=== PATIENT | female | born 1965 | race Caucasian/White ===

== ENCOUNTER 2016-08-08 20:44 | Emergency (ER) | payer MEDICARE, MEDICAID ==
--- NOTE | 2016-08-08 20:58 | ER Document Report ---
ED Medical Screen (RME) - General Chief Complaint: Allergic Reaction Stated Complaint: POSSIBLE ALLERGIC REACTION Time seen by provider: 20:56 Mode of Arrival: Ambulatory Information source: Patient Notes: 51 yo female presents to ed for gland in neck swelling, eye swelling and skin itching TRAVEL OUTSIDE OF THE [place] IN LAST 30 DAYS: No - HPI Onset: This evening Onset/Duration: Gradual Quality of pain: Achy Pain Level: 3 Associated Symptoms: Other - itching swelling to gland and feels like she is having difficulty breathing Exacerbated by: Denies Relieved by: Denies Similar symptoms previously: Yes Recently seen / treated by doctor: Yes - Related Data Smoking: Cigarettes, Less than 1 pack/day - 1/2 ppd Frequency of alcohol use: Rare Drug Abuse: None Allergies/Adverse Reactions: epinephrine [Epinephrine] Allergy (Unknown, Verified 08/08/16 20:55) Anaphylaxis Penicillins Allergy (Unknown, Verified 08/08/16 20:55) Hives adhesive tape [Adhesive Tape] Allergy (Verified 08/08/16 20:55) RASH, BLISTERS diphenhydramine HCl [From Benadryl] Allergy (Verified 08/08/16 20:55) iodine [Iodine] Allergy (Verified 08/08/16 20:55) Anaphylaxis latex [Latex] Allergy (Verified 08/08/16 20:55) RASH, BLISTERS metformin Allergy (Verified 08/08/16 20:55) Hives Class 2 Anesthesias Allergy (Severe, Uncoded 08/08/16 20:55) Anaphylaxis Past Medical History - Past Medical History Cardiac Medical History: Denies: Hx Heart Attack, Hx Hypertension Pulmonary Medical History: Denies: Hx Asthma, Hx Bronchitis, Hx COPD, Hx Pneumonia Neurological Medical History: Reports: Hx Migraine. Denies: Hx Seizures Endocrine Medical History: Reports: Hx Diabetes Mellitus Type 2, Hx Graves' Disease - questionable has 5 tumors Musculoskeltal Medical History: Denies Hx Arthritis, Reports Hx Musculoskeletal Trauma Skin Medical History: Reports Hx Cellulitis Psychiatric Medical History: Reports: Hx Anxiety, Hx Depression Traumatic Medical History: Reports: Hx Fractures - left elbow Past Surgical History: Reports: Hx Appendectomy, Hx Cholecystectomy, Hx Gynecologic Surgery - both tubes and one ovary, Hx Hysterectomy, Hx Tonsillectomy, Hx Tubal Ligation - Immunizations Immunizations up to date: Yes Hx Diphtheria, Pertussis, Tetanus Vaccination: Yes
--- NOTE | 2016-08-08 22:16 | ER Document Report ---
ED General - General Chief Complaint: Allergic Reaction Stated Complaint: POSSIBLE ALLERGIC REACTION Mode of Arrival: Ambulatory Information source: Patient Notes: 51-year-old female who is presented here multiple times for allergic reactions in the past presents again stating that she had allergic reaction secondary to eating a tortilla chip. pt notes swelling of her neck and diffiuclty breathing yet is talking in full sentences in no distress with no obvious swelling TRAVEL OUTSIDE OF THE [place] IN LAST 30 DAYS: No - HPI Onset: Just prior to arrival Onset/Duration: Sudden Quality of pain: No pain Severity: Mild Pain Level: Denies Associated symptoms: Other Exacerbated by: Denies Relieved by: Denies Similar symptoms previously: Yes Recently seen / treated by doctor: Yes - Related Data Allergies/Adverse Reactions: epinephrine [Epinephrine] Allergy (Unknown, Verified 08/08/16 20:55) Anaphylaxis Penicillins Allergy (Unknown, Verified 08/08/16 20:55) Hives adhesive tape [Adhesive Tape] Allergy (Verified 08/08/16 20:55) RASH, BLISTERS diphenhydramine HCl [From Benadryl] Allergy (Verified 08/08/16 20:55) iodine [Iodine] Allergy (Verified 08/08/16 20:55) Anaphylaxis latex [Latex] Allergy (Verified 08/08/16 20:55) RASH, BLISTERS metformin Allergy (Verified 08/08/16 20:55) Hives Class 2 Anesthesias Allergy (Severe, Uncoded 08/08/16 20:55) Anaphylaxis Past Medical History - General Information source: Patient - Social History Smoking Status: Current Every Day Smoker Cigarette use (# per day): No Chew tobacco use (# tins/day): No Smoking Education Provided: No Frequency of alcohol use: Rare Drug Abuse: None Family History: Reviewed & Not Pertinent Patient has suicidal ideation: No Patient has homicidal ideation: No - Past Medical History Cardiac Medical History: Denies: Hx Heart Attack, Hx Hypertension Pulmonary Medical History: Denies: Hx Asthma, Hx Bronchitis, Hx COPD, Hx Pneumonia Neurological Medical History: Reports: Hx Migraine. Denies: Hx Seizures Endocrine Medical History: Reports: Hx Diabetes Mellitus Type 2, Hx Graves' Disease - questionable has 5 tumors Musculoskeltal Medical History: Denies Hx Arthritis, Reports Hx Musculoskeletal Trauma Skin Medical History: Reports Hx Cellulitis Psychiatric Medical History: Reports: Hx Anxiety, Hx Depression Traumatic Medical History: Reports: Hx Fractures - left elbow Past Surgical History: Reports: Hx Appendectomy, Hx Cholecystectomy, Hx Gynecologic Surgery - both tubes and one ovary, Hx Hysterectomy, Hx Tonsillectomy, Hx Tubal Ligation - Immunizations Immunizations up to date: Yes Hx Diphtheria, Pertussis, Tetanus Vaccination: Yes Review of Systems - Review of Systems Notes: REVIEW OF SYSTEMS: CONSTITUTIONAL : Denies fever, chills, or sweats. Denies recent illness. EENT: Admits to difficulty breathing CARDIOVASCULAR: Denies chest pain. Denies palpitations or racing or irregular heart beat. Denies ankle edema. RESPIRATORY: Denies cough, cold, or chest congestion. Denies shortness of breath, difficulty breathing, or wheezing. GASTROINTESTINAL: Denies abdominal pain or distention. Denies nausea, vomiting , or diarrhea. Denies blood in vomitus, stools, or per rectum. Denies black, tarry stools. Denies constipation. GENITOURINARY: Denies difficulty urinating, painful urination, burning, frequency, blood in urine, or discharge. FEMALE GENITOURINARY: Denies vaginal bleeding, heavy or abnormal periods, irregular periods. Denies vaginal discharge or odor. MUSCULOSKELETAL: Denies back or neck pain or stiffness. Denies joint pain or swelling. SKIN: Denies rash, lesions or sores. HEMATOLOGIC : Denies easy bruising or bleeding. LYMPHATIC: Denies swollen, enlarged glands. NEUROLOGICAL: Denies confusion or altered mental status. Denies passing out or loss of consciousness. Denies dizziness or lightheadedness. Denies headache. Denies weakness or paralysis or loss of use of either side. Denies problems with gait or speech. Denies sensory loss, numbness, or tingling. Denies seizures. PSYCHIATRIC: Denies anxiety or stress. Denies depression, suicidal ideation, or homicidal ideation. ALL OTHER SYSTEMS REVIEWED AND NEGATIVE. Dictation was performed using [employer] voice recognition software PHYSICAL EXAMINATION: GENERAL: Well-appearing, well-nourished and in no acute distress. HEAD: Atraumatic, normocephalic. EYES: Pupils equal round and reactive to light, extraocular movements intact, conjunctiva are normal. ENT: Nares patent, oropharynx clear without exudates. Moist mucous membranes. NECK: Normal range of motion, supple without lymphadenopathy LUNGS: Breath sounds clear to auscultation bilaterally and equal. No wheezes rales or rhonchi. HEART: Regular rate and rhythm without murmurs ABDOMEN: Soft, nontender, nondistended abdomen. No guarding, no rebound. No masses appreciated. Female : deferred Musculoskeletal: Normal range of motion, no pitting or edema. No cyanosis. NEUROLOGICAL: Cranial nerves grossly intact. Normal speech, normal gait. Normal sensory, motor exams PSYCH: Normal mood, normal affect. SKIN: Warm, Dry, normal turgor, no rashes or lesions noted. Physical Exam - Vital signs Vitals: Temp Pulse Resp BP Pulse Ox 97.8 F 110 H 16 142/79 H 99 08/08/16 20:56 08/08/16 20:56 08/08/16 20:56 08/08/16 20:56 08/08/16 20:56 Course - Re-evaluation Re-evalutation: 08/08/16 22:11 Physical examination notes actually no swelling no respiratory distress no signs of any allergic reaction. I have very low suspicion for any life- threatening issues. Patient will be started on steroids and Atarax and is otherwise stable for discharge After performing a Medical Screening Examination, I estimate there is LOW risk for AIRWAY COMPROMISE, ANAPHYLAXIS, CELLULITIS, EPIGLOTTIS, or NECROTIZING FASCIITIS, thus I consider the discharge disposition reasonable. Also, there is no evidence or peritonitis, sepsis, or toxicity. The patient and I have discussed the diagnosis and risks, and we agree with discharging home with close follow-up with the understanding that symptoms and presentations can change. We also discussed returning to the Emergency Department immediately if new or worsening symptoms occur. We have discussed the symptoms which are most concerning (e.g., difficulty breathing or swallowing, fever, changing or worsening pain) that necessitate immediate return. - Vital Signs Vital signs: Temp Pulse Resp BP Pulse Ox 97.8 F 110 H 16 142/79 H 99 08/08/16 20:56 08/08/16 20:56 08/08/16 20:56 08/08/16 20:56 08/08/16 20:56 Discharge - Discharge Clinical Impression: Allergic reaction Qualifiers: Encounter type: initial encounter Qualified Code(s): T78.40XA - Allergy, unspecified, initial encounter Condition: Stable Disposition: HOME, SELF-CARE Instructions: Acute Allergic Reaction ([facility]) Additional Instructions: Follow up with your physician tomorrow for further care or return to the ED IMMEDIATELY if symptoms worsen or new concerns occur Prescriptions: Prednisone 20 mg PO DAILY #10 tablet
[2016-08-08 23:21] VITALS: BP 122/74
== END 2016-08-08 22:40 | disposition home or self-care (01) ==
LOC: ER 20:44
DX: T78.1XXA Other adverse food reactions, not elsewhere classified, initial encounter (principal); X58.XXXA Exposure to other specified factors, initial encounter; F17.200 Nicotine dependence, unspecified, uncomplicated; E11.9 Type 2 diabetes mellitus without complications; Z88.0 Allergy status to penicillin; Z91.048 Other nonmedicinal substance allergy status; Z91.040 Latex allergy status; Z87.892 Personal history of anaphylaxis; Z88.8 Allergy status to other drugs, medicaments and biological substances; Z88.4 Allergy status to anesthetic agent
CPT/HCPCS: 99283

== ENCOUNTER 2016-08-11 08:58 | Emergency (ER) | payer MEDICARE, MEDICAID ==
[2016-08-11] MEDS ORDERED: NAPROXEN 250 MG TABLET PO ONE (10:09)
--- NOTE | 2016-08-11 10:11 | ER Document Report ---
ED Respiratory Problem - General Chief Complaint: Rib Pain Stated Complaint: LEFT SIDE PAIN Mode of Arrival: Ambulatory Information source: Patient Notes: Patient complains of nonproductive cough for the past 2 weeks. Patient states she was coughing this morning and felt a sudden pop in the left lateral rib area. Patient complains of increased pain with cough, deep breath, and movements. Patient denies any shortness of breath, nausea, vomiting or diarrhea. Patient denies any fever. TRAVEL OUTSIDE OF THE [place] IN LAST 30 DAYS: No - HPI Patient complains to provider of: Cough, Hurts to breath. No: Short of breath Onset: This morning Duration: Continuous Pain Level: 5 Context: denies: Hx asthma Chest pain/discomfort: Left Cough: Nonproductive Associated symptoms: Chest pain/discomfort, Cough. denies: Fever, Wheezing Similar symptoms previously: No Recently seen / treated by doctor: No - Related Data Allergies/Adverse Reactions: epinephrine [Epinephrine] Allergy (Unknown, Verified 08/11/16 09:04) Anaphylaxis Penicillins Allergy (Unknown, Verified 08/11/16 09:04) Hives adhesive tape [Adhesive Tape] Allergy (Verified 08/11/16 09:04) RASH, BLISTERS diphenhydramine HCl [From Benadryl] Allergy (Verified 08/11/16 09:04) iodine [Iodine] Allergy (Verified 08/11/16 09:04) Anaphylaxis latex [Latex] Allergy (Verified 08/11/16 09:04) RASH, BLISTERS metformin Allergy (Verified 08/11/16 09:04) Hives Class 2 Anesthesias Allergy (Severe, Uncoded 08/11/16 09:04) Anaphylaxis Past Medical History - General Information source: Patient - Social History Smoking Status: Current Every Day Smoker Chew tobacco use (# tins/day): No Frequency of alcohol use: Social Drug Abuse: None Family History: Reviewed & Not Pertinent Patient has suicidal ideation: No Patient has homicidal ideation: No - Past Medical History Cardiac Medical History: Denies: Hx Heart Attack, Hx Hypertension Pulmonary Medical History: Denies: Hx Asthma, Hx Bronchitis, Hx COPD, Hx Pneumonia Neurological Medical History: Reports: Hx Migraine. Denies: Hx Seizures Endocrine Medical History: Reports: Hx Diabetes Mellitus Type 2, Hx Graves' Disease - questionable has 5 tumors Musculoskeltal Medical History: Denies Hx Arthritis, Reports Hx Musculoskeletal Trauma Skin Medical History: Reports Hx Cellulitis Psychiatric Medical History: Reports: Hx Anxiety, Hx Depression Traumatic Medical History: Reports: Hx Fractures - left elbow Past Surgical History: Reports: Hx Appendectomy, Hx Cholecystectomy, Hx Gynecologic Surgery - both tubes and one ovary, Hx Hysterectomy, Hx Tonsillectomy, Hx Tubal Ligation - Immunizations Immunizations up to date: Yes Hx Diphtheria, Pertussis, Tetanus Vaccination: Yes Review of Systems - Review of Systems Constitutional: No symptoms reported. denies: Fever, Recent illness EENT: No symptoms reported Cardiovascular: Chest pain - Left lateral rib pain. denies: Dizziness Respiratory: Cough, Hurts to breathe. denies: Short of breath Gastrointestinal: No symptoms reported. denies: Abdominal pain, Nausea, Vomiting Genitourinary: No symptoms reported. denies: Dysuria, Flank pain Female Genitourinary: No symptoms reported Musculoskeletal: No symptoms reported Skin: No symptoms reported Hematologic/Lymphatic: No symptoms reported Neurological/Psychological: No symptoms reported. denies: Headaches Physical Exam - Vital signs Vitals: Temp Pulse Resp BP Pulse Ox 98.1 F 89 18 145/81 H 97 08/11/16 09:06 08/11/16 09:06 08/11/16 09:06 08/11/16 09:06 08/11/16 09:06 - General General appearance: Appears well, Alert In distress: Mild - HEENT Head: Normocephalic, Atraumatic Eyes: Normal Sinus: Normal Nasal: Normal Mouth/Lips: Normal Mucous membranes: Normal Neck: Normal, Supple. No: Lymphadenopathy - Respiratory Respiratory status: No respiratory distress Chest status: Pain on movement, Pain with cough, Pain with deep breathing Breath sounds: Nonproductive cough Chest palpation: Tender - left lateral side pain - Cardiovascular Rhythm: Regular Heart sounds: S1 appreciated, S2 appreciated - Abdominal Inspection: Obese Distension: No distension Bowel sounds: Normal Tenderness: Nontender - Back Back: Normal, Nontender. No: CVA tenderness - Extremities General upper extremity: Normal inspection, Normal strength General lower extremity: Normal inspection, Normal strength - Neurological Neuro grossly intact: Yes Cognition: Normal Orientation: AAOx4 [place] Coma Scale Eye Opening: Spontaneous [place] Coma Scale Verbal: Oriented [place] Coma Scale Motor: Obeys Commands [place] Coma Scale Total: 15 - Psychological Associated symptoms: Normal affect, Normal mood - Skin Skin Temperature: Warm Skin Moisture: Dry Skin Color: Normal Course - Re-evaluation Re-evalutation: 08/11/16 11:34 Respirations even, unlabored. Patient claims any narcotic pain medication at this time. Discussed worsening signs or symptoms that patient should return immediately for. Patient verbalized understanding and agrees with plan of care. - Vital Signs Vital signs: Temp Pulse Resp BP Pulse Ox 98.1 F 89 18 145/81 H 97 08/11/16 09:06 08/11/16 09:06 08/11/16 09:06 08/11/16 09:06 08/11/16 09:06 - Laboratory Result Diagrams: 08/11/16 10:20 08/11/16 10:20 Laboratory results interpreted by me: 08/11/16 08/11/16 08/11/16 09:55 10:20 10:20 Hgb 11.9 L Hct 35.9 L MCH 26.9 L RDW 18.0 H Chloride 108 H Albumin 3.3 L Urine Blood MODERATE H Labs- Entire Visit 08/11/16 08/11/16 08/11/16 09:55 10:20 10:20 WBC 8.3 RBC 4.43 Hgb 11.9 L Hct 35.9 L MCV 81 MCH 26.9 L MCHC 33.2 RDW 18.0 H Plt Count 279 Seg Neutrophils % 58.6 Lymphocytes % 23.4 Monocytes % 12.9 Eosinophils % 4.4 Basophils % 0.7 Absolute Neutrophils 4.9 Absolute Lymphocytes 1.9 Absolute Monocytes 1.1 Absolute Eosinophils 0.4 Absolute Basophils 0.1 Sodium 140.5 Potassium 4.3 Chloride 108 H Carbon Dioxide 25 Anion Gap 8 BUN 11 Creatinine 0.63 Est GFR ( Amer) > 60 Est GFR (Non-Af Amer) > 60 Glucose 87 Calcium 9.0 Total Bilirubin 0.3 Direct Bilirubin 0.0 AST 21 ALT 25 Alkaline Phosphatase 88 Total Protein 6.3 Albumin 3.3 L Urine Color STRAW Urine Appearance CLEAR Urine pH 6.0 Ur Specific [place] 1.005 Urine Protein NEGATIVE Urine Glucose (UA) NEGATIVE Urine Ketones NEGATIVE Urine Blood MODERATE H Urine Nitrite NEGATIVE Urine Bilirubin NEGATIVE Urine Urobilinogen NEGATIVE Ur Leukocyte Esterase NEGATIVE Urine WBC (Auto) 1 Urine RBC (Auto) 1 Squamous Epi Cells Auto 2 Urine Mucus (Auto) RARE Urine Ascorbic Acid NEGATIVE 08/11/16 11:34 - Diagnostic Test Radiology reviewed: Reports reviewed Discharge - Discharge Clinical Impression: Cough, Chest wall pain Upper respiratory infection Qualifiers: URI type: unspecified URI Qualified Code(s): J06.9 - Acute upper respiratory infection, unspecified Condition: Stable Disposition: HOME, SELF-CARE Instructions: Chest Wall Pain ([facility]), Anti-Inflammatory Medication ([facility]), Upper Respiratory Illness ([facility]), Muscle Relaxers ([facility]), Muscle Strain ([facility]) Additional Instructions: Return immediately for any new or worsening symptoms Followup with your primary care provider, call tomorrow to make a followup appointment Prescriptions: Benzonatate [Tessalon Perle 100 mg Capsule] 100 mg PO Q8HP PRN #20 cap PRN Reason: Cyclobenzaprine HCl [Flexeril 10 Mg Tablet] 10 mg PO TID #15 tablet Referrals: DIOMEDES RICO MD [Primary Care Provider] - Follow up tomorrow
[2016-08-11 10:38] LABS: APPEARANCE,URINE CLEAR; BILIRUBIN,URINE NEGATIVE (NEGATIVE); GLUCOSE, URINE NEGATIVE (NEGATIVE); KETONES,URINE NEGATIVE (NEGATIVE); LEUKOCYTE ESTERASE,URINE NEGATIVE (NEGATIVE); NITRITE,URINE NEGATIVE (NEGATIVE); PROTEIN,URINE NEGATIVE (NEGATIVE); URINE SPECIFIC GRAVITY 1.005; UROBILINOGEN,URINE NEGATIVE mg/dL (<2.0)
[2016-08-11 10:47] LABS: ABSOLUTE BASOPHILS # (AUTO) 0.1 10^3/uL (0.0-0.2); ABSOLUTE EOSINOPHILS # (AUTO) 0.4 10^3/uL (0.0-0.6); ABSOLUTE LYMPHOCYTES (AUTO) 1.9 10^3/uL (0.5-4.7); ABSOLUTE MONOCYTES (AUTO) 1.1 10^3/uL (0.1-1.4); ABSOLUTE NEUT (AUTO) 4.9 10^3/uL (1.7-8.2); BASOPHILS % (AUTO) 0.7 % (0-2); EOSINOPHILS % (AUTO) 4.4 % (0-6); HEMATOCRIT 35.9 % (36.0-47.0); HEMOGLOBIN 11.9 g/dL (12.0-15.5); HGB HCT DIFFERENCE -0.2; LYMPHOCYTES % (AUTO) 23.4 % (13-45); MEAN CORPUSCULAR HEMOGLOBIN 26.9 pg (27.0-33.4); MEAN CORPUSCULAR HGB CONC 33.2 g/dL (32.0-36.0); MEAN CORPUSCULAR VOLUME 81 fl (80-97); MONOCYTES % (AUTO) 12.9 % (3-13); RED BLOOD COUNT 4.43 10^6/uL (3.72-5.28); SEGMENTED NEUTROPHILS % (AUTO) 58.6 % (42-78); WHITE BLOOD COUNT 8.3 10^3/uL (4.0-10.5)
[2016-08-11 11:10] LABS: ALANINE AMINOTRANSFERASE 25 U/L (9-52); ALBUMIN 3.3 g/dL (3.5-5.0); ALKALINE PHOSPHATASE 88 U/L (38-126); ANION GAP 8 (5-19); ASPARTATE AMINO TRANSFERASE 21 U/L (14-36); BILIRUBIN,TOTAL 0.3 mg/dL (0.2-1.3); BLOOD UREA NITROGEN 11 mg/dL (7-20); CARBON DIOXIDE 25 mmol/L (22-30); CHLORIDE 108 mmol/L (98-107); CREATININE RESULT 0.63 mg/dL (0.52-1.25); GLUCOSE 87 mg/dL (75-110); POTASSIUM 4.3 mmol/L (3.6-5.0); SODIUM 140.5 mmol/L (137-145); TOTAL PROTEIN 6.3 g/dL (6.3-8.2)
[2016-08-11 13:07] VITALS: BP 127/67
== END 2016-08-11 12:02 | disposition home or self-care (01) ==
LOC: ER 08:58
DX: J06.9 Acute upper respiratory infection, unspecified (principal); R07.89 Other chest pain; R05 Cough; R07.81 Pleurodynia; R06.02 Shortness of breath; F17.210 Nicotine dependence, cigarettes, uncomplicated
CPT/HCPCS: 99283; 36415; 87040; 85025; 80053; 81001; 71101; A9270

== ENCOUNTER 2016-11-10 22:58 | Emergency (ER) | payer MEDICARE, MEDICAID ==
[2016-11-10] MEDS ORDERED: IPRATROPIUM/ALBUTEROL 0.5-2.5 MG/3 ML AMPUL NEB ONE (23:15)
[2016-11-10] MEDS: ALBUTEROL SULFATE 0.083% NEB 2.5 MG/3 ML AMPUL NEB SCH ×2 (23:27→23:55)
[2016-11-11] MEDS ORDERED: PREDNISONE 20 MG TABLET PO ONE (01:47)
--- NOTE | 2016-11-11 01:48 | ER Document Report ---
ED Respiratory Problem - General Chief Complaint: Breathing Difficulty Stated Complaint: DIFFICULTY BREATHING Time seen by provider: 01:48 Mode of Arrival: Ambulatory Information source: Patient TRAVEL OUTSIDE OF THE [place] IN LAST 30 DAYS: No - HPI Patient complains to provider of: Cough, Short of breath Onset: Other - 4 days Duration: Worse/persistent Severity: Mild Context: Smoker Short of Breath: Mild Chest pain/discomfort: Tightness Cough: Nonproductive At home treatment: Bronchodilators Associated symptoms: Congestion, Cough, Fever, Short of breath Similar symptoms previously: Yes Recently seen / treated by doctor: No Notes: Patient is a 51-year-old female who is a smoker but reports that she has never been diagnosed with COPD, who presents to the emergency room complaining of cough, shortness of breath, wheezing that's been going on for the past few days , infected 4 days ago she had a fever 102 which resolved after 1 dose of ibuprofen and has not returned, she denies any chest pain, reports her cough is nonproductive, has been using her pro-air inhaler at home with minimal intermittent relief - Related Data Allergies/Adverse Reactions: epinephrine [Epinephrine] Allergy (Unknown, Verified 11/11/16 02:34) Anaphylaxis Penicillins Allergy (Unknown, Verified 11/11/16 02:34) Hives adhesive tape [Adhesive Tape] Allergy (Verified 11/11/16 02:34) RASH, BLISTERS diphenhydramine HCl [From Benadryl] Allergy (Verified 11/11/16 02:34) iodine [Iodine] Allergy (Verified 11/11/16 02:34) Anaphylaxis latex [Latex] Allergy (Verified 11/11/16 02:34) RASH, BLISTERS metformin Allergy (Verified 11/11/16 02:34) Hives Class 2 Anesthesias Allergy (Severe, Uncoded 11/11/16 02:34) Anaphylaxis Past Medical History - General Information source: Patient - Social History Smoking Status: Current Every Day Smoker Family History: Reviewed & Not Pertinent - Past Medical History Cardiac Medical History: Denies: Hx Heart Attack, Hx Hypertension Pulmonary Medical History: Denies: Hx Asthma, Hx Bronchitis, Hx COPD, Hx Pneumonia Neurological Medical History: Reports: Hx Migraine. Denies: Hx Seizures Endocrine Medical History: Reports: Hx Diabetes Mellitus Type 2, Hx Graves' Disease - questionable has 5 tumors Renal/ Medical History: Denies: Hx Peritoneal Dialysis Musculoskeltal Medical History: Denies Hx Arthritis, Reports Hx Musculoskeletal Trauma Skin Medical History: Reports Hx Cellulitis Psychiatric Medical History: Reports: Hx Anxiety, Hx Depression Traumatic Medical History: Reports: Hx Fractures - left elbow Past Surgical History: Reports: Hx Appendectomy, Hx Cholecystectomy, Hx Gynecologic Surgery - both tubes and one ovary, Hx Hysterectomy, Hx Tonsillectomy, Hx Tubal Ligation - Immunizations Immunizations up to date: Yes Hx Diphtheria, Pertussis, Tetanus Vaccination: Yes Review of Systems - Review of Systems Constitutional: Fever EENT: No symptoms reported Cardiovascular: No symptoms reported Respiratory: See HPI Gastrointestinal: No symptoms reported Genitourinary: No symptoms reported Female Genitourinary: No symptoms reported Musculoskeletal: No symptoms reported Skin: No symptoms reported Hematologic/Lymphatic: No symptoms reported Neurological/Psychological: No symptoms reported -: Yes All other systems reviewed and negative Physical Exam - Vital signs Vitals: Temp Pulse Resp BP Pulse Ox 98.6 F 96 22 H 148/87 H 96 11/10/16 23:07 11/10/16 23:07 11/10/16 23:07 11/10/16 23:07 11/10/16 23:07 Interpretation: Tachypneic - General General appearance: Appears well, Alert In distress: None - HEENT Head: Normocephalic, Atraumatic Eyes: Normal Conjunctiva: Normal Extraocular movements intact: Yes Eyelashes: Normal Pupils: PERRL Pharynx: Normal Neck: Normal - Respiratory Respiratory status: Tachypnea Chest status: Nontender Breath sounds: Normal Chest palpation: Normal - Cardiovascular Rhythm: Regular Heart sounds: Normal auscultation Murmur: No - Abdominal Inspection: Normal Distension: No distension - Back Back: Normal - Extremities General upper extremity: Normal inspection, Nontender, Normal color, Normal ROM , Normal temperature General lower extremity: Normal inspection, Nontender, Normal color, Normal ROM , Normal temperature, Normal weight bearing. No: Toni's sign - Neurological Neuro grossly intact: Yes Cognition: Normal Orientation: AAOx4 [place] Coma Scale Eye Opening: Spontaneous [place] Coma Scale Verbal: Oriented [place] Coma Scale Motor: Obeys Commands [place] Coma Scale Total: 15 Speech: Normal Motor strength normal: LUE, RUE, LLE, RLE Sensory: Normal - Psychological Associated symptoms: Normal affect, Normal mood - Skin Skin Temperature: Warm Skin Moisture: Dry Skin Color: Normal Course - Re-evaluation Re-evalutation: 11/11/16 02:35 Patient reports feeling much better, imaging findings were discussed with bedside which are unremarkable, lungs are clear to auscultation, patient likely with underlying asthma/COPD, with exacerbation from seasonal allergies versus viral upper respiratory illness, she'll be started on prednisone, advised to use her albuterol inhaler, quit smoking, patient acknowledges understanding and agreement with this plan - Vital Signs Vital signs: Temp Pulse Resp BP Pulse Ox 98.6 F 96 18 138/68 H 97 11/10/16 23:07 11/10/16 23:07 11/11/16 02:22 11/11/16 02:22 11/11/16 02:22 - Diagnostic Test Radiology reviewed: Image reviewed, Reports reviewed Discharge - Discharge Clinical Impression: COPD (chronic obstructive pulmonary disease) Qualifiers: COPD type: unspecified COPD Qualified Code(s): J44.9 - Chronic obstructive pulmonary disease, unspecified Seasonal allergies Qualifiers: Allergic rhinitis trigger: unspecified Qualified Code(s): J30.2 - Other seasonal allergic rhinitis Condition: Stable Disposition: HOME, SELF-CARE Instructions: Chronic Obstructive Lung Disease ([facility]) Additional Instructions: Follow up with your primary care provider in one to 2 days. Return to the emergency room immediately if symptoms worsen or any additional concerns. Prescriptions: Albuterol Sulfate [Proair HFA Inhalation Aerosol 8.5 gm MDI] 1 puff IH Q4 PRN # 1 mdi PRN Reason: Prednisone 40 mg PO DAILY #8 tablet Forms: Smoking Cessation Education Referrals: DIOMEDES RICO MD [Primary Care Provider] - Follow up as needed
[2016-11-11 02:33] VITALS: BP 138/68
== END 2016-11-11 02:59 | disposition home or self-care (01) ==
LOC: ER 22:58
DX: J44.9 Chronic obstructive pulmonary disease, unspecified (principal); J30.2 Other seasonal allergic rhinitis; R06.02 Shortness of breath; R05 Cough; R06.2 Wheezing; F17.200 Nicotine dependence, unspecified, uncomplicated
CPT/HCPCS: 94640 ×2; 99284; 71020; A9270 ×3; J7512; J7620

== ENCOUNTER 2016-11-15 03:02 | Emergency (ER) | payer MEDICARE, MEDICAID ==
[2016-11-15] MEDS ORDERED: IBUPROFEN 600 MG TABLET PO ONE (04:42)
[2016-11-15] MEDS ORDERED: BENZONATATE 100 MG CAPSULE PO ONE (04:42)
--- NOTE | 2016-11-15 04:48 | ER Document Report ---
ED General - General Chief Complaint: Breathing Difficulty Stated Complaint: DIFFICULTY BREATHING Notes: Patient is a 51-year-old female without past medical history with exception of apparent mild asthma, continues to smoke who presents with concerns of persistent coughing that is worse at night. She was seen 5 days ago in the emergency department for shortness of breath and states that while that has improved somewhat, the coughing that keeps her awake at night continues to be a problem. She has been taking steroids and albuterol with some improvement of her symptoms. States she's dramatically cut down on smoking. She has not noted that anything worsens her symptoms. She has no primary care doctor to follow-up with. She denies any chest pain, vomiting, diaphoresis, or exertional symptoms. States she's had similar symptoms in the past with bronchitis. TRAVEL OUTSIDE OF THE [place] IN LAST 30 DAYS: No - Related Data Allergies/Adverse Reactions: epinephrine [Epinephrine] Allergy (Unknown, Verified 11/11/16 02:34) Anaphylaxis Penicillins Allergy (Unknown, Verified 11/11/16 02:34) Hives adhesive tape [Adhesive Tape] Allergy (Verified 11/11/16 02:34) RASH, BLISTERS diphenhydramine HCl [From Benadryl] Allergy (Verified 11/11/16 02:34) iodine [Iodine] Allergy (Verified 11/11/16 02:34) Anaphylaxis latex [Latex] Allergy (Verified 11/11/16 02:34) RASH, BLISTERS metformin Allergy (Verified 11/11/16 02:34) Hives Class 2 Anesthesias Allergy (Severe, Uncoded 11/11/16 02:34) Anaphylaxis Past Medical History - General Information source: Patient - Social History Smoking Status: Current Every Day Smoker Frequency of alcohol use: None Drug Abuse: None Lives with: Family Family History: Reviewed & Not Pertinent Patient has suicidal ideation: No Patient has homicidal ideation: No - Past Medical History Cardiac Medical History: Denies: Hx Heart Attack, Hx Hypertension Pulmonary Medical History: Denies: Hx Asthma, Hx Bronchitis, Hx COPD, Hx Pneumonia Neurological Medical History: Reports: Hx Migraine. Denies: Hx Seizures Endocrine Medical History: Reports: Hx Diabetes Mellitus Type 2, Hx Graves' Disease - questionable has 5 tumors Renal/ Medical History: Denies: Hx Peritoneal Dialysis Musculoskeltal Medical History: Denies Hx Arthritis, Reports Hx Musculoskeletal Trauma Skin Medical History: Reports Hx Cellulitis Psychiatric Medical History: Reports: Hx Anxiety, Hx Depression Traumatic Medical History: Reports: Hx Fractures - left elbow Past Surgical History: Reports: Hx Appendectomy, Hx Cholecystectomy, Hx Gynecologic Surgery - both tubes and one ovary, Hx Hysterectomy, Hx Tonsillectomy, Hx Tubal Ligation - Immunizations Immunizations up to date: Yes Hx Diphtheria, Pertussis, Tetanus Vaccination: Yes Review of Systems - Review of Systems Notes: Constitutional: Negative for fever. HENT: Negative for sore throat. Eyes: Negative for visual changes. Cardiovascular: Negative for chest pain. Respiratory: Positive for shortness of breath. Positive cough Gastrointestinal: Negative for abdominal pain, vomiting or diarrhea. Genitourinary: Negative for dysuria. Musculoskeletal: Negative for back pain. Skin: Negative for rash. Neurological: Negative for headaches, weakness or numbness. 10 point ROS negative except as marked above and in HPI. Physical Exam - Vital signs Vitals: Temp Pulse Resp BP Pulse Ox 98.1 F 103 H 24 H 163/90 H 96 11/15/16 03:07 11/15/16 03:07 11/15/16 03:07 11/15/16 03:07 11/15/16 03:07 Interpretation: Hypertensive, Tachypneic Notes: PHYSICAL EXAMINATION: GENERAL: Well-appearing, well-nourished and in no acute distress. HEAD: Atraumatic, normocephalic. EYES: Pupils equal round and reactive to light, extraocular movements intact, sclera anicteric, conjunctiva are normal. ENT: nares patent, oropharynx clear without exudates. Moist mucous membranes. NECK: Normal range of motion, supple without lymphadenopathy LUNGS: Breath sounds clear to auscultation bilaterally and equal. Mild expiratory wheeze. No respiratory distress HEART: Regular rate and rhythm without murmurs ABDOMEN: Soft, nontender, normoactive bowel sounds. No guarding, no rebound. No masses appreciated. EXTREMITIES: Normal range of motion, no pitting or edema. No cyanosis. NEUROLOGICAL: No focal neurological deficits. Moves all extremities spontaneously and on command. PSYCH: Normal mood, normal affect. SKIN: Warm, Dry, normal turgor, no rashes or lesions noted. Course - Re-evaluation Re-evalutation: 11/15/16 04:42 Patient presents with a mild exacerbation of their baseline COPD. Mild wheezing at time of presentation but vitals do not show significant hypoxemia or tachypnea. No retractions. CXR done 5 days ago was normal and clinically history not consistent with pneumonia. No indication for laboratories at this time given her overall well appearance. Patient's main reason for, and emergency department tonight is that she had persistent coughing I suspect superimposed bronchitis in addition to her mild COPD exacerbation. Patient able to ambulate without any respiratory distress. Based on patient's overall reassuring assessment, I believe they are stable for outpatient management with steroids, tesselon perals, and spacer. I do not suspect an acute alternative pathology at this time based on history and exam including acute pulmonary embolus, ACS, pneumothorax, or aortic dissection. At this time will discharge with return precautions and follow-up recommendations. Verbal discharge instructions given a the bedside and opportunity for questions given. Medication warnings reviewed. Patient is in agreement with this plan and has verbalized understanding of return precautions and the need for primary care follow-up in the next 24-72 hours. - Vital Signs Vital signs: Temp Pulse Resp BP Pulse Ox 98.1 F 103 H 24 H 163/90 H 96 11/15/16 03:07 11/15/16 03:07 11/15/16 03:07 11/15/16 03:07 11/15/16 03:07 - EKG Interpretation by Me Additional EKG results interpreted by me: 11/15/16 06:08 Normal sinus rhythm. Rate 90. No ST elevations or depressions. QTC is 451. Discharge - Discharge Clinical Impression: Bronchitis COPD (chronic obstructive pulmonary disease) Qualifiers: COPD type: unspecified COPD Qualified Code(s): J44.9 - Chronic obstructive pulmonary disease, unspecified Condition: Good Disposition: HOME, SELF-CARE Additional Instructions: You were seen for symptoms most consistent with bronchitis. This can take up to 12 weeks to fully resolve. This is generally due to a viral infection. Please follow-up with your primary doctor in the next 2-3 days. Return if you develop worsening cough, vomiting, fever >100.4, pass out, begin coughing blood, or have any other symptoms that are concerning to you. Please use the medications prescribed today as directed. Prescriptions: Benzonatate [Tessalon Perles 100 mg Capsule] 100 mg PO Q8HP PRN #40 capsule PRN Reason: Diclofenac Sodium [Voltaren] 100 gm TP TID PRN #100 gel..gm. PRN Reason: Referrals: DIOMEDES RICO MD [Primary Care Provider] - Follow up as needed
[2016-11-15] MEDS ORDERED: LIDOCAINE 2% VISCOUS SOLN 20 ML UDCUP PO ONE (05:03)
[2016-11-15] MEDS ORDERED: METOCLOPRAMIDE HCL ORAL SOLN 10 MG/10 ML UDCUP PO ONE (05:03)
[2016-11-15] MEDS ORDERED: MAG HYDROX/AL HYDROX/SIMETH SUSP 30 ML UDCUP PO ONE (05:03)
[2016-11-15 06:11] VITALS: BP 130/71
--- NOTE | 2016-11-15 10:14 | EKG REPORT ---
SEVERITY:- BORDERLINE ECG - SINUS RHYTHM NONSPECIFIC ANTERIOR ST-T CHANGES (V1-3) : Confirmed by: Rey Capellan MD 15-Nov-2016 10:13:00
== END 2016-11-15 06:12 | disposition home or self-care (01) ==
LOC: ER 03:02
DX: J40 Bronchitis, not specified as acute or chronic (principal); J44.9 Chronic obstructive pulmonary disease, unspecified; F17.200 Nicotine dependence, unspecified, uncomplicated; Z91.040 Latex allergy status; E11.9 Type 2 diabetes mellitus without complications; Z88.0 Allergy status to penicillin; Z90.49 Acquired absence of other specified parts of digestive tract; Z90.710 Acquired absence of both cervix and uterus
CPT/HCPCS: 93005; 99284; 93010; A9270 ×3

== ENCOUNTER → 2017-01-06 | Outpatient (CLI) | payer MEDICARE, MEDICAID ==
[~2017-01-06] MED LIST: ALBUTEROL SULFATE 0.083% NEB 2.5 MG/3 ML AMPUL NEB ONE
--- NOTE | 2017-01-06 13:34 | Pulmonary Function Test ---
Pulmonary Function Test Date of Procedure:: 01/06/17 INDICATION:: Dyspnea Referring Provider: Dr. Castillo Nail Galvanizer: Nereida Pond CAR[employer] SURVEYOR - Report Spirometry: FVC 2.65 L 78% postbronchodilator therapy 2.63 L 77% FEV1 1.98 L 71% postbronchodilator therapy 2.05 L 74% FEV1/FVC % 75 postbronchodilator therapy 78 predicted 83 Lung Volume: Total lung capacity 4.06 L 76% Vital capacity 2.65 L 78% Inspiratory capacity 2.12 FRC N2 1.94 74% ERV 0.46 RV 1.41 73% RV/TLC % 35 predicted 35 Diffusion Capactity: Diffusion capacity 14.2 56% DLCO/VA 3.98 97% Impression: Mild restrictive ventilatory defect. Mild obstructive ventilatory defect (the degree of obstruction may be masked by the restrictive defect). Moderate decrease in diffusion capacity
== END ==
LOC: RT 10:07
PROVIDERS: ATTEND Internal Medicine Pulmonary Disease
DX: R06.2 Wheezing (principal)
CPT/HCPCS: 94729; 94727; 94060; A9270

== ENCOUNTER 2017-05-15 20:08 | Emergency (ER) | payer MEDICARE, MEDICAID ==
--- NOTE | 2017-05-15 22:25 | RADIOLOGY REPORT (SQ) ---
EXAM DESCRIPTION: CT HEAD WITHOUT COMPLETED DATE/TIME: 05/15/2017 10:17 pm REASON FOR STUDY: fall COMPARISON: None. TECHNIQUE: Axial images acquired through the brain without intravenous contrast. Images reviewed wi th bone, brain and subdural windows. Images stored on PACS. All CT scanners at this facility use dose modulation, iterative reconstruction, and/or weight based d osing when appropriate to reduce radiation dose to as low as reasonably achievable (ALARA). [facility]: Dose Right [facility]: CareDose [facility]: Dose Right [facility]: Teradose 4D [facility]: [employer] RADIATION DOSE: Up-to-date CT equipment and radiation dose reduction techniques were employed. CTDIv ol: 64.6 mGy. DLP: 1163 mGy-cm. mGy. LIMITATIONS: None. FINDINGS: VENTRICLES: Normal size and contour. CEREBRUM: No masses. No hemorrhage. No midline shift. No evidence for acute infarction. Normal gra y/white matter differentiation. No areas of low density in the white matter. CEREBELLUM: No masses. No hemorrhage. No alteration of density. No evidence for acute infarction. EXTRAAXIAL SPACES: No fluid collections. No masses. ORBITS AND GLOBE: No intra- or extraconal masses. Normal contour of globe without masses. CALVARIUM: No fracture. PARANASAL SINUSES: No fluid or mucosal thickening. SOFT TISSUES: No mass or hematoma. OTHER: No other significant finding. IMPRESSION: NORMAL BRAIN CT WITHOUT CONTRAST. EVIDENCE OF ACUTE STROKE: NO. COMMENT: Quality ID # [id number]: Final reports with documentation of one or more dose reduction techniques (e.g., Automated exposure control, adjustment of the mA and/or kV according to patient size, use of iterative reconstruction technique) TECHNICAL DOCUMENTATION: JOB ID: [id number] [employer]- All Rights Reserved
--- NOTE | 2017-05-15 22:26 | RADIOLOGY REPORT (SQ) ---
EXAM DESCRIPTION: CT CERVICAL SPINE WITHOUT COMPLETED DATE/TIME: 05/15/2017 10:17 pm REASON FOR STUDY: fall COMPARISON: None. TECHNIQUE: Axial images acquired through the cervical spine without intravenous contrast. Images re viewed with lung, soft tissue and bone windows. Reconstructed coronal and sagittal MPR images review ed. Images stored on PACS. All CT scanners at this facility use dose modulation, iterative reconstruction, and/or weight based d osing when appropriate to reduce radiation dose to as low as reasonably achievable (ALARA). [facility]: Dose Right [facility]: CareDose [facility]: Dose Right [facility]: Teradose 4D [facility]: [employer] RADIATION DOSE: Up-to-date CT equipment and radiation dose reduction techniques were employed. CTDIv ol: 24.1 mGy. DLP: 564 mGy-cm. mGy. LIMITATIONS: None. FINDINGS: ALIGNMENT: Anatomic. MINERALIZATION: Normal. VERTEBRAL BODIES: No fractures or dislocation. DISCS: No significant disc disease. FACETS, LATERAL MASSES, POSTERIOR ELEMENTS: No fractures. No dislocation. No acute findings. HARDWARE: None in the spine. VISUALIZED RIBS: No fractures. LUNG APICES AND SOFT TISSUES: No significant or acute findings. OTHER: No other significant finding. IMPRESSION: NO ACUTE OR SIGNIFICANT FINDINGS IN THE CERVICAL SPINE. TECHNICAL DOCUMENTATION: JOB ID: [id number] Quality ID # [id number]: Final reports with documentation of one or more dose reduction techniques (e.g., Au tomated exposure control, adjustment of the mA and/or kV according to patient size, use of iterative reconstruction technique) 2010 [employer]- All Rights Reserved
--- NOTE | 2017-05-15 22:39 | RADIOLOGY REPORT (SQ) ---
EXAM DESCRIPTION: HIP LEFT AP/LATERAL COMPLETED DATE/TIME: 05/15/2017 10:29 pm REASON FOR STUDY: fall COMPARISON: None. NUMBER OF VIEWS: Two views. TECHNIQUE: AP pelvis and additional frog-leg view of the left hip. LIMITATIONS: None. FINDINGS: MINERALIZATION: Normal. LEFT HIP: No fracture or dislocation. No worrisome bone lesions. RIGHT HIP: No fracture or dislocation. No worrisome bone lesions. PUBIS AND ISCHIUM: No fracture. PELVIS: No fracture. SACRUM: No fracture or dislocation. No worrisome bone lesions. LOWER LUMBAR SPINE: No fracture or dislocation. No worrisome bone lesions. No significant disc disea se. SOFT TISSUES: No findings. OTHER: No other significant finding. IMPRESSION: NEGATIVE STUDY OF THE LEFT HIP AND PELVIS. NO RADIOGRAPHIC EVIDENCE OF ACUTE INJURY. TECHNICAL DOCUMENTATION: JOB ID: [id number] [employer]- All Rights Reserved
[2017-05-15] MEDS ORDERED: PROMETHAZINE HCL 25 MG TABLET PO ONE (23:26)
[2017-05-15] MEDS ORDERED: KETOROLAC TROMETHAMINE 60 MG/2 ML SDV IM ONE (23:26)
--- NOTE | 2017-05-15 23:30 | ER Document Report ---
ED Fall - General Chief Complaint: Fall Stated Complaint: FALL,HEAD INJURY Time Seen by Provider: 05/15/17 23:17 Mode of Arrival: Ambulatory Information source: Patient TRAVEL OUTSIDE OF THE [place] IN LAST 30 DAYS: No - HPI Patient complains to provider of: Slip and fall Occurred: Just prior to arrival Where: Home Context: Slipped Associated symptoms: Lost consciousness Location of injury/pain: Head, Hip, Neck, Upper extremity Quality of pain: Achy Severity: Moderate Pain Level: 3 Prehospital interventions: C-collar Notes: Patient is a 52-year-old female presenting to the emergency room status post slip and fall, states she slipped on a mixture of water and oil, causing her to fall backwards, she hit her head twice on the concrete floor and had a brief loss of consciousness, she is complaining of head pain, neck pain, right elbow pain, left hip pain and low back pain, she reports mild nausea but no vomiting, she does have occasional blurred vision - Related data Allergies/Adverse Reactions: epinephrine [Epinephrine] Allergy (Unknown, Verified 05/15/17 20:19) Anaphylaxis Penicillins Allergy (Unknown, Verified 05/15/17 20:19) Hives adhesive tape [Adhesive Tape] Allergy (Verified 05/15/17 20:19) RASH, BLISTERS diphenhydramine HCl [From Benadryl] Allergy (Verified 05/15/17 20:19) iodine [Iodine] Allergy (Verified 05/15/17 20:19) Anaphylaxis latex [Latex] Allergy (Verified 05/15/17 20:19) RASH, BLISTERS metformin Allergy (Verified 05/15/17 20:19) Hives Class 2 Anesthesias Allergy (Severe, Uncoded 11/11/16 02:34) Anaphylaxis Past Medical History - General Information source: Patient - Social History Smoking Status: Current Every Day Smoker Chew tobacco use (# tins/day): No Frequency of alcohol use: Social Drug Abuse: None Family History: Reviewed & Not Pertinent Patient has suicidal ideation: No Patient has homicidal ideation: No - Past Medical History Cardiac Medical History: Reports: Hx Hypertension Denies: Hx Heart Attack Pulmonary Medical History: Denies: Hx Asthma, Hx Bronchitis, Hx COPD, Hx Pneumonia Neurological Medical History: Reports: Hx Migraine. Denies: Hx Seizures Endocrine Medical History: Reports: Hx Diabetes Mellitus Type 2, Hx Graves' Disease - questionable has 5 tumors Renal/ Medical History: Denies: Hx Peritoneal Dialysis Musculoskeltal Medical History: Denies Hx Arthritis, Reports Hx Musculoskeletal Trauma Skin Medical History: Reports Hx Cellulitis Psychiatric Medical History: Reports: Hx Anxiety, Hx Depression Traumatic Medical History: Reports: Hx Fractures - left elbow Past Surgical History: Reports: Hx Appendectomy, Hx Cholecystectomy, Hx Gynecologic Surgery - both tubes and one ovary, Hx Hysterectomy, Hx Tonsillectomy, Hx Tubal Ligation - Immunizations Immunizations up to date: Yes Hx Diphtheria, Pertussis, Tetanus Vaccination: Yes Review of Systems - Review of Systems Constitutional: No symptoms reported EENT: Blurred vision Cardiovascular: No symptoms reported Respiratory: No symptoms reported Gastrointestinal: Nausea Genitourinary: No symptoms reported Female Genitourinary: No symptoms reported Musculoskeletal: See HPI Skin: No symptoms reported Hematologic/Lymphatic: No symptoms reported Neurological/Psychological: No symptoms reported Physical Exam - Vital signs Vitals: Temp Pulse Resp BP Pulse Ox 98.6 F 104 H 18 105/70 96 05/15/17 20:21 05/15/17 20:21 05/15/17 20:21 05/15/17 20:21 05/15/17 20:21 Interpretation: Normal - General General appearance: Appears well, Alert In distress: None - HEENT Head: Normocephalic, Atraumatic Eyes: Normal Conjunctiva: Normal Extraocular movements intact: Yes Eyelashes: Normal Pupils: PERRL Neck: Other - Paraspinal muscle tenderness, no midline tenderness, no step-off or deformity - Respiratory Respiratory status: No respiratory distress Chest status: Nontender Breath sounds: Normal Chest palpation: Normal - Cardiovascular Rhythm: Regular Heart sounds: Normal auscultation Murmur: No - Abdominal Inspection: Normal Distension: No distension Bowel sounds: Normal Tenderness: Nontender Organomegaly: No organomegaly - Back Back: Tender - Lumbar paraspinal muscle tenderness - Extremities General upper extremity: Normal inspection, Nontender, Normal color, Normal ROM , Normal temperature General lower extremity: Normal color, Normal temperature. No: Toni's sign Elbow: Tender - Patient reports tenderness to palpate on the right elbow, no specific point tenderness, pain with range of motion testing, distal sensation and motor is intact with 2+ radial pulses Hip: Tender - Tender to palpate over left lateral hip, patient reports pain with range of motion testing, distal sensation and motor is intact - Neurological Neuro grossly intact: Yes Cognition: Normal Orientation: AAOx4 [place] Coma Scale Eye Opening: Spontaneous [place] Coma Scale Verbal: Oriented [place] Coma Scale Motor: Obeys Commands [place] Coma Scale Total: 15 Speech: Normal Motor strength normal: LUE, RUE, LLE, RLE Sensory: Normal - Psychological Associated symptoms: Normal affect, Normal mood - Skin Skin Temperature: Warm Skin Moisture: Dry Skin Color: Normal Course - Re-evaluation Re-evalutation: 05/15/17 23:32 Imaging findings were discussed with patient at bedside which are unremarkable, patient was provided with pain medication in the emergency department as well as nausea medication to help treat her headache, she requested that no narcotic medication be given and I will honor that request, she will be discharged with instructions for follow-up and advised to return if any additional concerns, patient acknowledges understanding and agreement with this plan 05/15/17 23:50 Patient was able to ambulate without assistance, she does appear a little stiff and achy but she is moving all extremities and bearing weight without difficulty - Vital Signs Vital signs: Temp Pulse Resp BP Pulse Ox 98.7 F 98 20 106/64 97 05/15/17 22:58 05/15/17 22:58 05/15/17 22:58 05/15/17 22:58 05/15/17 22:58 - Diagnostic Test Radiology reviewed: Image reviewed, Reports reviewed Discharge - Discharge Clinical Impression: Head injury Qualifiers: Encounter type: initial encounter Qualified Code(s): S09.90XA - Unspecified injury of head, initial encounter Elbow contusion Qualifiers: Encounter type: initial encounter Laterality: right Qualified Code(s): S50.01XA - Contusion of right elbow, initial encounter Contusion, hip Qualifiers: Encounter type: initial encounter Laterality: left Qualified Code(s): S70.02XA - Contusion of left hip, initial encounter Cervical strain, acute Qualifiers: Encounter type: initial encounter Qualified Code(s): S16.1XXA - Strain of muscle, fascia and tendon at neck level, initial encounter Lumbar strain Qualifiers: Encounter type: initial encounter Qualified Code(s): S39.012A - Strain of muscle, fascia and tendon of lower back, initial encounter Condition: Stable Disposition: HOME, SELF-CARE Instructions: Concussion ([facility]), Contusion ([facility]), Ice Packs ([facility]), Neck Injury ( Cervical Strain) ([facility]), Post-Concussion Syndrome ([facility]) Additional Instructions: Follow up with your primary care provider in one to 2 days. Return to the emergency room immediately if symptoms worsen or any additional concerns. Prescriptions: Ibuprofen [Motrin 600 Mg Tablet] 600 mg PO TID #30 tablet Promethazine HCl [Phenergan 25 mg Tablet] 25 - 50 mg PO ASDIR PRN #12 tablet PRN Reason: Forms: Smoking Cessation Education, Return to Work
[2017-05-15 23:59] VITALS: BP 120/69
== END 2017-05-16 00:10 | disposition home or self-care (01) ==
LOC: ER 20:08
DX: S09.90XA Unspecified injury of head, initial encounter (principal); S50.01XA Contusion of right elbow, initial encounter; S70.02XA Contusion of left hip, initial encounter; S16.1XXA Strain of muscle, fascia and tendon at neck level, initial encounter; S39.012A Strain of muscle, fascia and tendon of lower back, initial encounter; W01.198A Fall on same level from slipping, tripping and stumbling with subsequent striking against other object, initial encounter; Y92.009 Unspecified place in unspecified non-institutional (private) residence as the place of occurrence of the external cause; I10 Essential (primary) hypertension; R11.0 Nausea; F17.200 Nicotine dependence, unspecified, uncomplicated; Z88.0 Allergy status to penicillin; Z91.040 Latex allergy status; Z90.49 Acquired absence of other specified parts of digestive tract
CPT/HCPCS: 99284; 96372; 73502; 70450; 72125; L0120; J1885; A9270

== ENCOUNTER 2018-11-08 18:55 | Emergency (ER) | payer BC, MEDICARE ==
--- NOTE | 2018-11-08 20:22 | ER Document Report ---
ED Medical Screen (RME) - General Chief Complaint: Fever Stated Complaint: FEVER Time Seen by Provider: 11/08/18 20:12 Mode of Arrival: Ambulatory Information source: Patient Notes: 53-year-old female presents to ED for complaint of fever of 103 last night and she did not take any Tylenol or Motrin before coming to the emergency room. She states today it was 100 and two-point something and she still did not take any Tylenol or Motrin. She states she has had some nausea but no vomiting and diarrhea. States she also has some urinary frequency and urgency. When she came into the emergency room today her temp was 100.1 with a pulse of 116 blood pressure 136/83. She is alert oriented respirations regular and unlabored speaking in full sentences. I read did her vital signs. Temperature is 99.4, pulse is 103, O2 sat is 95%, blood pressure is 139/75, and respirations are 20. Patient is alert oriented respirations regular and unlabored speaking in full sentences. I have greeted and performed a rapid initial assessment of this patient. A comprehensive ED assessment and evaluation of the patient, analysis of test results and completion of medical decision making process will be conducted by an additional ED providers. TRAVEL OUTSIDE OF THE [place] IN LAST 30 DAYS: No - Related Data Allergies/Adverse Reactions: epinephrine [Epinephrine] Allergy (Unknown, Verified 05/15/17 20:19) Anaphylaxis Penicillins Allergy (Unknown, Verified 05/15/17 20:19) Hives adhesive tape [Adhesive Tape] Allergy (Verified 05/15/17 20:19) RASH, BLISTERS diphenhydramine HCl [From Benadryl] Allergy (Verified 05/15/17 20:19) iodine [Iodine] Allergy (Verified 05/15/17 20:19) Anaphylaxis latex [Latex] Allergy (Verified 05/15/17 20:19) RASH, BLISTERS metformin Allergy (Verified 05/15/17 20:19) Hives Class 2 Anesthesias Allergy (Severe, Uncoded 11/11/16 02:34) Anaphylaxis Past Medical History - Social History Drug Abuse: None - Past Medical History Cardiac Medical History: Reports: Hx Hypertension Denies: Hx Heart Attack Pulmonary Medical History: Denies: Hx Asthma, Hx Bronchitis, Hx COPD, Hx Pneumonia Neurological Medical History: Reports: Hx Migraine. Denies: Hx Seizures Endocrine Medical History: Reports: Hx Diabetes Mellitus Type 2, Hx Graves' Disease - questionable has 5 tumors Renal/ Medical History: Denies: Hx Peritoneal Dialysis Musculoskeltal Medical History: Denies Hx Arthritis, Reports Hx Musculoskeletal Trauma Skin Medical History: Reports Hx Cellulitis Psychiatric Medical History: Reports: Hx Anxiety, Hx Depression Traumatic Medical History: Reports: Hx Fractures - left elbow Past Surgical History: Reports: Hx Appendectomy, Hx Cholecystectomy, Hx Gynecologic Surgery - both tubes and one ovary, Hx Hysterectomy, Hx Tonsillectomy, Hx Tubal Ligation - Immunizations Immunizations up to date: Yes Hx Diphtheria, Pertussis, Tetanus Vaccination: Yes Physical Exam - Vital signs Vitals: Temp Pulse Resp BP Pulse Ox 100.1 F 116 H 19 136/83 H 95 11/08/18 19:32 11/08/18 19:32 11/08/18 19:32 11/08/18 19:32 11/08/18 19:32 Course - Vital Signs Vital signs: Temp Pulse Resp BP Pulse Ox 99.4 F 111 H 20 136/75 H 95 11/08/18 20:17 11/08/18 20:17 11/08/18 20:17 11/08/18 20:17 11/08/18 20:17
[2018-11-08] MEDS ORDERED: RINGERS SOLUTION,LACTATED 1,000 ML IV ONE (20:24)
[2018-11-08] MEDS ORDERED: IBUPROFEN 800 MG TABLET PO ONE (20:24)
[2018-11-08] MEDS ORDERED: ONDANSETRON HCL INJ/PF 4 MG/2 ML SDV IV ONE (20:25)
[2018-11-08 21:02] LABS: ABSOLUTE LYMPHOCYTES (AUTO) 1.3 10^3/uL (0.5-4.7); ABSOLUTE MONOCYTES (AUTO) 0.4 10^3/uL (0.1-1.4); ABSOLUTE NEUT (AUTO) 5.4 10^3/uL (1.7-8.2); BASOPHILS % (AUTO) 0.6 % (0-2); EOSINOPHILS % (AUTO) 0.1 % (0-6); HEMATOCRIT 43.8 % (36.0-47.0); HEMOGLOBIN 15.2 g/dL (12.0-15.5); LYMPHOCYTES % (AUTO) 17.8 % (13-45); MEAN CORPUSCULAR HEMOGLOBIN 30.8 pg (27.0-33.4); MEAN CORPUSCULAR HGB CONC 34.6 g/dL (32.0-36.0); MEAN CORPUSCULAR VOLUME 89 fl (80-97); MONOCYTES % (AUTO) 5.8 % (3-13); PLATELET COUNT 187 10^3/uL (150-450); RED BLOOD COUNT 4.93 10^6/uL (3.72-5.28); RED CELL DISTRIBUTION WIDTH 14.5 % (11.5-14.0); SEGMENTED NEUTROPHILS % (AUTO) 75.7 % (42-78); TOTAL CELLS COUNTED % (AUTO) 100 %; WHITE BLOOD COUNT 7.1 10^3/uL (4.0-10.5)
[2018-11-08 21:29] LABS: BLOOD UREA NITROGEN 11 mg/dL (7-20); CALCIUM 8.7 mg/dL (8.4-10.2); GLUCOSE 115 mg/dL (75-110)
[2018-11-08 21:30] LABS: ALANINE AMINOTRANSFERASE 32 U/L (9-52); ALBUMIN 3.8 g/dL (3.5-5.0); ALKALINE PHOSPHATASE 86 U/L (38-126); ANION GAP 11 (5-19); ASPARTATE AMINO TRANSFERASE 22 U/L (14-36); BILIRUBIN,DIRECT 0.3 mg/dL (0.0-0.4); BILIRUBIN,TOTAL 0.7 mg/dL (0.2-1.3); CARBON DIOXIDE 21 mmol/L (22-30); CHLORIDE 103 mmol/L (98-107); POTASSIUM 3.7 mmol/L (3.6-5.0); SODIUM 134.9 mmol/L (137-145); TOTAL PROTEIN 6.3 g/dL (6.3-8.2)
[2018-11-08 21:58] LABS: APPEARANCE,URINE CLOUDY; BILIRUBIN,URINE NEGATIVE (NEGATIVE); COLOR,URINE AMBER; GLUCOSE, URINE NEGATIVE (NEGATIVE); KETONES,URINE NEGATIVE (NEGATIVE); LEUKOCYTE ESTERASE,URINE NEGATIVE (NEGATIVE); NITRITE,URINE NEGATIVE (NEGATIVE); PROTEIN,URINE 30 mg/dL (NEGATIVE); URINE SPECIFIC GRAVITY 1.028
[2018-11-08] MEDS ORDERED: ACETAMINOPHEN 325 MG TABLET PO ONE (22:33)
[2018-11-08] MEDS ORDERED: NORMAL SALINE 1000 ML 1,000 ML IV ONE (22:33)
[2018-11-08 22:37] VITALS: BP 125/72
--- NOTE | 2018-11-08 23:10 | ER Document Report ---
ED General - General Chief Complaint: Fever Stated Complaint: FEVER Time Seen by Provider: 11/08/18 20:12 Primary Care Provider: DIOMEDES RICO MD [Primary Care Provider] - Follow up as needed Mode of Arrival: Ambulatory Notes: Patient is a 53-year-old female presents to the emergency department for a generalized fever for the last 24 hours. Patient is also complaining of generalized body aches and over 10 episodes of diarrhea. Patient is denying any blood or dark stools in her diarrhea. Patient states she also feels a little bit nauseated but has denied vomiting. Patient's denying any URI symptoms or dysuria. Patient's denying any abdominal pain, chest pain, shortness of breath. Past medical history: Hypertension, pituitary adenoma Medications: Amlodipine, losartan Allergies: Epinephrine, penicillin, Benadryl, iodine, latex TRAVEL OUTSIDE OF THE [place] IN LAST 30 DAYS: No - Related Data Allergies/Adverse Reactions: epinephrine [Epinephrine] Allergy (Unknown, Verified 05/15/17 20:19) Anaphylaxis Penicillins Allergy (Unknown, Verified 05/15/17 20:19) Hives adhesive tape [Adhesive Tape] Allergy (Verified 05/15/17 20:19) RASH, BLISTERS diphenhydramine HCl [From Benadryl] Allergy (Verified 05/15/17 20:19) iodine [Iodine] Allergy (Verified 05/15/17 20:19) Anaphylaxis latex [Latex] Allergy (Verified 05/15/17 20:19) RASH, BLISTERS metformin Allergy (Verified 05/15/17 20:19) Hives Class 2 Anesthesias Allergy (Severe, Uncoded 11/11/16 02:34) Anaphylaxis Past Medical History - General Information source: Patient - Social History Smoking Status: Current Some Day Smoker Drug Abuse: None Family History: Reviewed & Not Pertinent Patient has suicidal ideation: No Patient has homicidal ideation: No - Past Medical History Cardiac Medical History: Reports: Hx Hypertension Denies: Hx Heart Attack Pulmonary Medical History: Denies: Hx Asthma, Hx Bronchitis, Hx COPD, Hx Pneumonia Neurological Medical History: Reports: Hx Migraine. Denies: Hx Seizures Endocrine Medical History: Reports: Hx Diabetes Mellitus Type 2, Hx Graves' Disease - questionable has 5 tumors Renal/ Medical History: Denies: Hx Peritoneal Dialysis Musculoskeletal Medical History: Denies Hx Arthritis, Reports Hx Musculoskeletal Trauma Skin Medical History: Reports Hx Cellulitis Psychiatric Medical History: Reports: Hx Anxiety, Hx Depression Traumatic Medical History: Reports: Hx Fractures - left elbow Past Surgical History: Reports: Hx Appendectomy, Hx Cholecystectomy, Hx Gynecologic Surgery - both tubes and one ovary, Hx Hysterectomy, Hx Tonsillectomy, Hx Tubal Ligation - Immunizations Immunizations up to date: Yes Hx Diphtheria, Pertussis, Tetanus Vaccination: Yes Review of Systems - Review of Systems Constitutional: See HPI EENT: See HPI Cardiovascular: See HPI Respiratory: See HPI Gastrointestinal: See HPI. denies: Abdominal pain Genitourinary: See HPI Female Genitourinary: No symptoms reported Musculoskeletal: No symptoms reported Skin: No symptoms reported Hematologic/Lymphatic: No symptoms reported Neurological/Psychological: No symptoms reported Physical Exam - Vital signs Vitals: Temp Pulse Resp BP Pulse Ox 100.1 F 116 H 19 136/83 H 95 11/08/18 19:32 11/08/18 19:32 11/08/18 19:32 11/08/18 19:32 11/08/18 19:32 - Notes Notes: GENERAL: Alert, interacts well. No acute distress. HEAD: Normocephalic, atraumatic. No frontal or maxillary sinus tenderness noted EYES: Pupils equal, round, and reactive to light. Extraocular movements intact. ENT: Oral mucosa moist, tongue midline. Nares patent, TM's intact, nonerythematous, nonbulging bilaterally. Pharynx within normal limits no palatal petechiae noted NECK: Full range of motion. Supple. Trachea midline. No lymphadenopathy appreciated LUNGS: Clear to auscultation bilaterally, no wheezes, rales, or rhonchi. No respiratory distress. HEART: Regular rate and rhythm. No murmur ABDOMEN: Soft, non-tender. Non-distended. Bowel sounds present in all 4 quad rants. No McBurney's point tenderness, no Ring sign noted EXTREMITIES: Moves all 4 extremities spontaneously. No edema, normal radial and dorsalis pedis pulses bilaterally. No cyanosis. BACK: no cervical, thoracic, lumbar midline tenderness. No saddle anesthesia, normal distal neurovascular exam. No CVA tenderness noted bilaterally NEUROLOGICAL: Alert and oriented x3. Normal speech. cranial nerves II through XII grossly intact. PSYCH: Normal affect, normal mood. SKIN: Warm, dry, normal turgor. No rashes or lesions noted. Course - Re-evaluation Re-evalutation: 11/08/18 23:10 Patient's labs show no signs of leukocytosis, no signs of anemia. Patient's sodium was noted to be 134.9, treated with normal saline solution in the emergency room patient's urine did show signs of dehydration with a specific gravity of 1.028, no signs of infection noted. Patient's denying abdominal pain, no need for imaging at this patient was unable to provide a stool sample in the emergency department. Patient denies antibiotic use in the last 90 days. Discussed close follow-up with primary care provider should diarrhea continue for stool cultures. Patient states she overall feels a lot better after treatments in the emergency room, stable for discharge. - Vital Signs Vital signs: Temp Pulse Resp BP Pulse Ox 98.4 F 95 18 125/72 95 11/08/18 22:36 11/08/18 22:36 11/08/18 22:36 11/08/18 22:36 11/08/18 22:36 - Laboratory Result Diagrams: 11/08/18 20:49 11/08/18 20:49 Laboratory results interpreted by me: 11/08/18 11/08/18 11/08/18 20:49 20:49 21:30 RDW 14.5 H Sodium 134.9 L Carbon Dioxide 21 L Glucose 115 H Urine Protein 30 H Urine Blood LARGE H Urine Urobilinogen 2.0 H Discharge - Discharge Clinical Impression: Fever Qualifiers: Fever type: unspecified Qualified Code(s): R50.9 - Fever, unspecified Diarrhea Qualifiers: Diarrhea type: unspecified type Qualified Code(s): R19.7 - Diarrhea, unspecified Condition: Stable Disposition: HOME, SELF-CARE Instructions: Diarrhea, Nonspecific ([facility]), Fever ([facility]), Viral Syndrome ([facility]) Additional Instructions: As we discussed you have been seen and treated in the emergency department for a fever and your diarrhea. Your labs reveal no signs of abnormalities. Please follow-up with your primary care provider in the next 24-48 hours return to the emergency room should you have any other concerning symptoms. Please take [id number] Tylenol and Motrin for generalized body aches and pain or fevers. Forms: Return to Work Referrals: DIOMEDES RICO MD [Primary Care Provider] - Follow up as needed
== END 2018-11-08 23:45 | disposition home or self-care (01) ==
LOC: ER 18:55
DX: R50.9 Fever, unspecified (principal); R19.7 Diarrhea, unspecified; R52 Pain, unspecified; R11.0 Nausea; E11.9 Type 2 diabetes mellitus without complications; I10 Essential (primary) hypertension; Z79.899 Other long term (current) drug therapy; Z88.8 Allergy status to other drugs, medicaments and biological substances; Z88.0 Allergy status to penicillin; Z91.040 Latex allergy status; Z91.048 Other nonmedicinal substance allergy status; Z87.892 Personal history of anaphylaxis; Z88.4 Allergy status to anesthetic agent
CPT/HCPCS: 99283; 96361; 96374; 36415; 87086; 83690; 85025; 87088; 80053; 81001; 87186; J2405; J7030; J7120

== ENCOUNTER 2019-08-27 12:07 | Emergency (ER) | payer BC, MEDICARE ==
--- NOTE | 2019-08-27 12:47 | ER Document Report ---
ED Medical Screen (RME) - General Chief Complaint: Eye Problem Stated Complaint: LEFT EYE PROBLEM Time Seen by Provider: 08/27/19 12:38 Primary Care Provider: DIOMEDES RICO MD [Primary Care Provider] - Follow up as needed Mode of Arrival: Ambulatory Information source: Patient Notes: Otherwise healthy 54-year-old female with history of pituitary tumor presenting to the emergency department with chief complaint of visual disturbance in her left eye, patient reports yesterday she started having some bright flashes and now has nearly complete loss of vision, she states anything she sees on the left eye is steward. She states she is seeing black spots in her visual field. I have greeted and performed a rapid initial assessment of this patient. A comprehensive ED assessment and evaluation of the patient, analysis of test results and completion of the medical decision making process will be conducted by additional ED providers. I have specifically instructed the patient or family members with the patient to immediately return to any nursing staff should anything change in the patient's condition or with their chief complaint. TRAVEL OUTSIDE OF THE [place] IN LAST 30 DAYS: No - Related Data Allergies/Adverse Reactions: epinephrine [Epinephrine] Allergy (Unknown, Verified 08/27/19 12:32) Anaphylaxis Penicillins Allergy (Unknown, Verified 08/27/19 12:32) Hives adhesive tape [Adhesive Tape] Allergy (Verified 08/27/19 12:32) RASH, BLISTERS diphenhydramine HCl [From Benadryl] Allergy (Verified 08/27/19 12:32) iodine [Iodine] Allergy (Verified 08/27/19 12:32) Anaphylaxis latex [Latex] Allergy (Verified 08/27/19 12:32) RASH, BLISTERS metformin Allergy (Verified 08/27/19 12:32) Hives Class 2 Anesthesias Allergy (Severe, Uncoded 08/27/19 12:32) Anaphylaxis Home Medications: saxenda. amlodipine. losartan Past Medical History - Social History Chew tobacco use (# tins/day): No Frequency of alcohol use: None Drug Abuse: None - Past Medical History Cardiac Medical History: Reports: Hx Hypertension Denies: Hx Heart Attack Pulmonary Medical History: Denies: Hx Asthma, Hx Bronchitis, Hx COPD, Hx Pneumonia Neurological Medical History: Reports: Hx Migraine. Denies: Hx Seizures Endocrine Medical History: Reports: Hx Diabetes Mellitus Type 2, Hx Graves' Disease - questionable has 5 tumors Renal/ Medical History: Denies: Hx Peritoneal Dialysis Musculoskeltal Medical History: Denies Hx Arthritis, Reports Hx Musculoskeletal Trauma Skin Medical History: Reports Hx Cellulitis Psychiatric Medical History: Reports: Hx Anxiety, Hx Depression Traumatic Medical History: Reports: Hx Fractures - left elbow Past Surgical History: Reports: Hx Appendectomy, Hx Cholecystectomy, Hx Gynecologic Surgery - both tubes and one ovary, Hx Hysterectomy, Hx Tonsillectomy, Hx Tubal Ligation - Immunizations Immunizations up to date: Yes Hx Diphtheria, Pertussis, Tetanus Vaccination: Yes Physical Exam - Vital signs Vitals: Temp Pulse Resp BP Pulse Ox 98.2 F 94 18 149/82 H 98 08/27/19 12:10 08/27/19 12:10 08/27/19 12:10 08/27/19 12:10 08/27/19 12:10 Course - Vital Signs Vital signs: Temp Pulse Resp BP Pulse Ox 98.2 F 94 18 149/82 H 98 08/27/19 12:10 08/27/19 12:10 08/27/19 12:10 08/27/19 12:10 08/27/19 12:10 Doctor's Discharge - Discharge Referrals: DIOMEDES RICO MD [Primary Care Provider] - Follow up as needed
--- NOTE | 2019-08-27 15:41 | ER Document Report ---
ED Eye Complaint - General Chief Complaint: Eye Problem Stated Complaint: LEFT EYE PROBLEM Time Seen by Provider: 08/27/19 12:38 Primary Care Provider: DIOMEDES RICO MD [Primary Care Provider] - Follow up as needed Mode of Arrival: Ambulatory Information source: Patient Notes: This 54-year-old woman presents to the emergency department with a complaint of left visual changes. She states that yesterday she noticed a flash of light and then spotty changes in her left. This morning she continues to experience flashing light and notes that her vision has become decreased in the left. She denies pain in the right is normal. TRAVEL OUTSIDE OF THE [place] IN LAST 30 DAYS: No - Related Data Allergies/Adverse Reactions: epinephrine [Epinephrine] Allergy (Unknown, Verified 08/27/19 12:32) Anaphylaxis Penicillins Allergy (Unknown, Verified 08/27/19 12:32) Hives adhesive tape [Adhesive Tape] Allergy (Verified 08/27/19 12:32) RASH, BLISTERS diphenhydramine HCl [From Benadryl] Allergy (Verified 08/27/19 12:32) iodine [Iodine] Allergy (Verified 08/27/19 12:32) Anaphylaxis latex [Latex] Allergy (Verified 08/27/19 12:32) RASH, BLISTERS metformin Allergy (Verified 08/27/19 12:32) Hives Class 2 Anesthesias Allergy (Severe, Uncoded 08/27/19 12:32) Anaphylaxis "monica" Allergy (Uncoded 08/27/19 12:46) Home Medications: saxenda. amlodipine. losartan Past Medical History - General Information source: Patient - Social History Smoking Status: Never Smoker Chew tobacco use (# tins/day): No Frequency of alcohol use: None Drug Abuse: None Family History: Reviewed & Not Pertinent Patient has suicidal ideation: No Patient has homicidal ideation: No - Past Medical History Cardiac Medical History: Reports: Hx Hypertension Denies: Hx Heart Attack Pulmonary Medical History: Denies: Hx Asthma, Hx Bronchitis, Hx COPD, Hx Pneumonia Neurological Medical History: Reports: Hx Migraine. Denies: Hx Seizures Endocrine Medical History: Reports: Hx Diabetes Mellitus Type 2, Hx Graves' Disease - questionable has 5 tumors Renal/ Medical History: Denies: Hx Peritoneal Dialysis Musculoskeletal Medical History: Denies Hx Arthritis, Reports Hx Musculoskeletal Trauma Skin Medical History: Reports Hx Cellulitis Psychiatric Medical History: Reports: Hx Anxiety, Hx Depression Traumatic Medical History: Reports: Hx Fractures - left elbow Past Surgical History: Reports: Hx Appendectomy, Hx Cholecystectomy, Hx Gynecologic Surgery - both tubes and one ovary, Hx Hysterectomy, Hx Tonsillectomy, Hx Tubal Ligation - Immunizations Immunizations up to date: Yes Hx Diphtheria, Pertussis, Tetanus Vaccination: Yes Review of Systems - Review of Systems Notes: Constitutional: Negative for fever. HENT: Negative for sore throat. Eyes: + Left eye changes. Cardiovascular: Negative for chest pain. Respiratory: Negative for shortness of breath. Gastrointestinal: Negative for abdominal pain, vomiting or diarrhea. Genitourinary: Negative for dysuria. Musculoskeletal: Negative for back pain. Skin: Negative for rash. Neurological: Negative for headaches, weakness or numbness. 10 point ROS negative except as marked above and in HPI. Physical Exam - Vital signs Vitals: Temp Pulse Resp BP Pulse Ox 98.2 F 94 18 149/82 H 98 08/27/19 12:10 08/27/19 12:10 08/27/19 12:10 08/27/19 12:10 08/27/19 12:10 - Notes Notes: PHYSICAL EXAMINATION: Physical Exam: General: Well-nourished well-developed in no acute distress HEENT: NC/AT, pupils equal round and reactive to light, [place], [facility] Neck: supple, no adenopathy, no masses. Lungs: clear, no wheezing, no rales no rhonchi CVS: Regular rate and rhythm no murmur gallop or rub Abdomen: Soft active nontender, no masses, no hepatosplenomegaly Ext: No edema clubbing or cyanosis. Neuro: Alert and responsive, moving all 4 extremities on command, cranial nerves intact. Skin: Intact no open lesions, no rash PSYCH: Normal mood, normal affect. Bedside ultrasound of the affected reveals irregularity in the posterior aspect of the eye with a increased area on the nasal side of the eyeball. Findings highly suspicious for retinal detachment. Course - Re-evaluation Re-evalutation: 08/27/19 15:46 I have explained to the patient is my concern that she may have a retinal detachment, the eye remains painless and her visual field has been narrowed with some dark spots. I have called [facility] and requested to speak to the legal assistant salesperson handbags. 08/27/19 16:[address] Parry at [facility], ophthalmology salesperson handbags. After a discussion of the patient's symptomology, he has agreed to see the patient in his office at 6 PM today. I have discussed that plan with the patient and she is in agreement. - Vital Signs Vital signs: Temp Pulse Resp BP Pulse Ox 98.2 F 94 18 149/82 H 98 08/27/19 12:10 08/27/19 12:10 08/27/19 12:10 08/27/19 12:10 08/27/19 12:10 Discharge - Discharge Clinical Impression: Retinal detachment of left eye with retinal defect, Change in vision Condition: Good Disposition: HOME, SELF-CARE Additional Instructions: You were diagnosed with a likely retinal detachment in the left eye. Dr. Sloan Parry, Ophthalmology at [facility] will see you today in his office at 6 PM. The [address] is [facility] [address] [facility]. Referrals: DIOMEDES RICO MD [Primary Care Provider] - Follow up as needed
[2019-08-27 16:55] VITALS: BP 148/91
== END 2019-08-27 16:50 | disposition home or self-care (01) ==
LOC: ER 12:07
DX: H33.8 Other retinal detachments (principal); H53.8 Other visual disturbances; I10 Essential (primary) hypertension; E11.9 Type 2 diabetes mellitus without complications; Z88.0 Allergy status to penicillin; Z91.040 Latex allergy status; Z90.49 Acquired absence of other specified parts of digestive tract; Z90.710 Acquired absence of both cervix and uterus
CPT/HCPCS: 99284

== ENCOUNTER 2019-12-06 05:15 | Emergency (ER) | payer BC, MEDICARE ==
[2019-12-06] MEDS ORDERED: ACETAMINOPHEN 325 MG TABLET PO ONE (05:31)
[2019-12-06 05:57] LABS: ABSOLUTE BASOPHILS # (AUTO) 0.1 10^3/uL (0.0-0.2); ABSOLUTE EOSINOPHILS # (AUTO) 0.1 10^3/uL (0.0-0.6); ABSOLUTE LYMPHOCYTES (AUTO) 1.9 10^3/uL (0.5-4.7); ABSOLUTE MONOCYTES (AUTO) 0.8 10^3/uL (0.1-1.4); ABSOLUTE NEUT (AUTO) 6.9 10^3/uL (1.7-8.2); EOSINOPHILS % (AUTO) 0.9 % (0-6); HEMATOCRIT 44.1 % (36.0-47.0); HEMOGLOBIN 15.2 g/dL (12.0-15.5); LYMPHOCYTES % (AUTO) 19.2 % (13-45); MEAN CORPUSCULAR HEMOGLOBIN 31.3 pg (27.0-33.4); MEAN CORPUSCULAR HGB CONC 34.5 g/dL (32.0-36.0); MEAN CORPUSCULAR VOLUME 91 fl (80-97); MONOCYTES % (AUTO) 7.9 % (3-13); PLATELET COUNT 200 10^3/uL (150-450); RED BLOOD COUNT 4.85 10^6/uL (3.72-5.28); RED CELL DISTRIBUTION WIDTH 14.9 % (11.5-14.0); TOTAL CELLS COUNTED % (AUTO) 100 %; WHITE BLOOD COUNT 9.8 10^3/uL (4.0-10.5)
[2019-12-06 06:09] LABS: APPEARANCE,URINE CLOUDY; BILIRUBIN,URINE NEGATIVE (NEGATIVE); CALCIUM OXALATE CRYSTALS,URINE MODERATE /HPF; COLOR,URINE YELLOW; GLUCOSE, URINE NEGATIVE (NEGATIVE); KETONES,URINE NEGATIVE (NEGATIVE); LEUKOCYTE ESTERASE,URINE NEGATIVE (NEGATIVE); NITRITE,URINE NEGATIVE (NEGATIVE); PROTEIN,URINE 30 mg/dL (NEGATIVE); UROBILINOGEN,URINE NEGATIVE mg/dL (<2.0)
[2019-12-06 06:15] LABS: ALKALINE PHOSPHATASE 97 U/L (38-126); ANION GAP 7 (5-19); ASPARTATE AMINO TRANSFERASE 23 U/L (14-36); BILIRUBIN,TOTAL 0.6 mg/dL (0.2-1.3); BLOOD UREA NITROGEN 12 mg/dL (7-20); CALCIUM 9.1 mg/dL (8.4-10.2); CARBON DIOXIDE 20 mmol/L (22-30); CHLORIDE 111 mmol/L (98-107); GLUCOSE 139 mg/dL (75-110); POTASSIUM 4.1 mmol/L (3.6-5.0); TOTAL PROTEIN 6.8 g/dL (6.3-8.2)
[2019-12-06] MEDS ORDERED: ONDANSETRON HCL INJ/PF 4 MG/2 ML SDV IV ONE (08:12)
[2019-12-06] MEDS ORDERED: KETOROLAC TROMETHAMINE INJ/PF 30 MG/1 ML SDV IV ONE (08:12)
[2019-12-06] MEDS ORDERED: TAMSULOSIN HCL 0.4 MG CAP.SR.24H PO ONE (08:12)
--- NOTE | 2019-12-06 08:13 | ER Document Report ---
ED GI/ - General Chief Complaint: Flank Pain Stated Complaint: FLANK PAIN,ABDOMINAL PAIN Time Seen by Provider: 12/06/19 08:06 Primary Care Provider: DIOMEDES RICO MD [Primary Care Provider] - Follow up as needed Notes: CHIEF COMPLAINT: Right flank pain last night HPI: 54-year-old female presenting to the emergency department complaining of right flank pain sudden onset with nausea. Patient states pain began around 2 PM yesterday has not stopped began in the low back and now radiates around the flank. No prior history of kidney stones no fever. ROS: See HPI - all other systems were reviewed and are otherwise negative Constitutional: no fever Eyes: no drainage, no blurred vision ENT: no runny nose, no sore throat Cardiovascular: no chest pain Resp: no SOB, no cough GI: no vomiting, no diarrhea, + abdominal pain, positive nausea : no dysuria, positive hematuria Integumentary: no rash Allergy: no hives Musculoskeletal: no extremity pain or swelling Neurological: no numbness/tingling, no weakness MEDICATIONS: I agree with the patient medications as charted by the RN. ALLERGIES: I agree with the allergies as charted by the RN. PAST MEDICAL HISTORY/PAST SURGICAL HISTORY: Reviewed and agree as charted by RN. SOCIAL HISTORY: Reviewed and agree as charted by RN. FAMILY HISTORY: No significant familial comorbid conditions directly related to patient complaint EXAM: Reviewed vital signs as charted by RN. CONSTITUTIONAL: Alert and oriented and responds appropriately to questions. Well-appearing; well-nourished HEAD: Normocephalic; atraumatic EYES: PERRL; Conjunctivae clear, sclerae non-icteric ENT: normal nose; no rhinorrhea; moist mucous membranes; pharynx without lesions noted, no uvula edema or deviation, no tonsillar hypertrophy, phonation normal NECK: Supple without meningismus; non-tender; no cervical lymphadenopathy, no masses CARD: RRR; no murmurs, no clicks, no rubs, no gallops; symmetric distal pulses RESP: Normal chest excursion without splinting or tachypnea; breath sounds clear and equal bilaterally; no wheezes, no rhonchi, no rales, pulse oximetry 98% on room air not hypoxic ABD/GI: Normal bowel sounds; non-distended; soft, non-tender, no rebound, no guarding; no palpable organomegaly or masses. BACK: The back appears normal and is non-tender to palpation, there is mild right CVA tenderness EXT: Normal ROM in all joints; non-tender to palpation; no cyanosis, no effusions, no edema SKIN: Normal color for age and race; warm; dry; good turgor; no acute lesions noted NEURO: Moves all extremities equally; Motor and sensory function intact PSYCH: The patient's mood and manner are appropriate. Grooming and personal hygiene are appropriate. MDM: 54-year-old female right flank pain sudden onset with nausea and hematuria suspect renal colic. Patient shows significant hematuria in the urine no evidence of infection. Will obtain CT to evaluate for obstructing stone as patient has no prior kidney stone history TRAVEL OUTSIDE OF THE [place] IN LAST 30 DAYS: No - Related Data Allergies/Adverse Reactions: epinephrine [Epinephrine] Allergy (Unknown, Verified 12/06/19 05:24) Anaphylaxis Penicillins Allergy (Unknown, Verified 12/06/19 05:24) Hives adhesive tape [Adhesive Tape] Allergy (Verified 12/06/19 05:24) RASH, BLISTERS diphenhydramine HCl [From Benadryl] Allergy (Verified 12/06/19 05:24) iodine [Iodine] Allergy (Verified 12/06/19 05:24) Anaphylaxis latex [Latex] Allergy (Verified 12/06/19 05:24) RASH, BLISTERS metformin Allergy (Verified 12/06/19 05:24) Hives Class 2 Anesthesias Allergy (Severe, Uncoded 08/27/19 12:32) Anaphylaxis "monica" Allergy (Uncoded 08/27/19 12:46) Past Medical History - Social History Smoking Status: Former Smoker Frequency of alcohol use: Social Drug Abuse: None Family History: Reviewed & Not Pertinent Patient has homicidal ideation: No - Past Medical History Cardiac Medical History: Reports: Hx Hypertension Denies: Hx Heart Attack Pulmonary Medical History: Denies: Hx Asthma, Hx Bronchitis, Hx COPD, Hx Pneumonia Neurological Medical History: Reports: Hx Migraine. Denies: Hx Seizures Endocrine Medical History: Reports: Hx Diabetes Mellitus Type 2, Hx Graves' Disease - questionable has 5 tumors Renal/ Medical History: Denies: Hx Peritoneal Dialysis Musculoskeletal Medical History: Denies Hx Arthritis, Reports Hx Musculoskeletal Trauma Skin Medical History: Reports Hx Cellulitis Psychiatric Medical History: Reports: Hx Anxiety, Hx Depression Traumatic Medical History: Reports: Hx Fractures - left elbow Past Surgical History: Reports: Hx Appendectomy, Hx Cholecystectomy, Hx Gynecologic Surgery - both tubes and one ovary, Hx Hysterectomy, Hx Tonsillectomy, Hx Tubal Ligation - Immunizations Immunizations up to date: Yes Hx Diphtheria, Pertussis, Tetanus Vaccination: Yes Physical Exam - Vital signs Vitals: Temp Pulse Resp BP Pulse Ox 97.8 F 86 16 129/96 H 97 12/06/19 05:23 12/06/19 05:23 12/06/19 05:23 12/06/19 05:23 12/06/19 05:23 Course - Re-evaluation Re-evalutation: 12/06/19 10:12 Patient states pain is reasonably well controlled at this time. We discussed her evaluation results. We discussed the CT findings, discussed diverticulosis with the patient. She is aware of the liver issues states that she has had a small mass or area on the liver for a long time and it is being followed by her PCP. She will let her PCP know to request a copy of the CT so they can obtain the measurements for further evaluation. We discussed return precautions including uncontrolled pain or fever - Vital Signs Vital signs: Temp Pulse Resp BP Pulse Ox 97.8 F 86 16 129/96 H 97 12/06/19 05:25 12/06/19 05:23 12/06/19 05:23 12/06/19 05:23 12/06/19 05:23 - Laboratory Result Diagrams: 12/06/19 05:39 12/06/19 05:39 Laboratory results interpreted by me: 12/06/19 12/06/19 12/06/19 05:39 05:39 05:39 RDW 14.9 H Chloride 111 H Carbon Dioxide 20 L Glucose 139 H Urine Protein 30 H Urine Blood LARGE H Discharge - Discharge Clinical Impression: Kidney stone on right side, Diverticulosis, Liver lesion Condition: Stable Disposition: HOME, SELF-CARE Instructions: Kidney Stone ([facility]) Additional Instructions: 1. return to the ED for any fever, back pain or worsening condition 2. hydrate well at home to flush the system. 3. Percocet for pain, no driving if taking Percocet for pain 4. follow up with Urology for further evaluation and treatment 5. strain urine and bring any stone retrieved to Urology or PCP for testing Prescriptions: Tamsulosin HCl [Flomax 0.4 mg Cap.sr] 0.4 mg PO DAILY #7 cap.sr.24h Oxycodone HCl/Acetaminophen [Percocet 5-325 mg Tablet] 1 tab PO Q4H PRN #15 tab PRN Reason: Ondansetron [Zofran Odt 4 mg Tablet] 1 - 2 tab PO Q4H PRN #15 tab.rapdis PRN Reason: For Nausea/Vomiting Referrals: DIOMEDES RICO MD [Primary Care Provider] - Follow up as needed PAULETTE SHARMA MD [NO LOCAL MD] - Follow up as needed
--- NOTE | 2019-12-06 10:01 | RADIOLOGY REPORT (SQ) ---
EXAM DESCRIPTION: CT ABD/PELVIS NO ORAL OR IV IMAGES COMPLETED DATE/TIME: 12/06/2019 9:31 am REASON FOR STUDY: right flank pain eval for kidney stone COMPARISON: None. TECHNIQUE: CT scan of the abdomen and pelvis performed without intravenous or oral contrast. Images reviewed with lung, soft tissue, and bone windows. Reconstructed coronal and sagittal MPR images revi ewed. All images stored on PACS. All CT scanners at this facility use dose modulation, iterative reconstruction, and/or weight based d osing when appropriate to reduce radiation dose to as low as reasonably achievable (ALARA). [facility]: Dose Right [facility]: CareDose [facility]: Dose Right [facility]: Teradose 4D [facility]: [employer] RADIATION DOSE: CT Rad equipment meets quality standard of care and radiation dose reduction techniq ues were employed. CTDIvol: 16.9 mGy. DLP: 1025 mGy-cm. LIMITATIONS: None. FINDINGS: LOWER CHEST: Mild cardiomegaly. There is no pericardial or pleural effusion. NON-CONTRASTED LIVER, SPLEEN, ADRENALS: Evaluation is limited due to the absence of intravenous contr ast. The morphology of the liver is noncirrhotic. There is a hypodense lesion in the posterior aspe ct of the right hepatic lobe that measures 4.5 cm in transverse diameter, 5.1 cm in craniocaudal diam eter and 4.3 cm in AP diameter. There is a 2nd hypodense lesion within segment 4B of the liver that measures 13 x 12 mm. The spleen is normal in size. There is no abnormality of the adrenal glands PANCREAS: No acute gross abnormality. GALLBLADDER: The gallbladder is surgically absent. RIGHT KIDNEY AND URETER: Evaluation is limited due to the absence of intravenous contrast. There is a 3 mm calcification within the proximal ureter that results in mild hydroureteronephrosis and mild a symmetric stranding of the perinephric fat. There is no other renal or ureteral calcification. LEFT KIDNEY AND URETER: Evaluation is limited due to the absence of intravenous contrast. There is no hydronephrosis, nephrolithiasis, hydroureter or ureterolithiasis. AORTA AND RETROPERITONEUM: No aneurysm of the abdominal aorta. No retroperitoneal adenopathy, hemorr steve or mass. BOWEL AND PERITONEAL CAVITY: Colonic diverticulosis without diverticulitis. There is no bowel obstru ction, bowel wall thickening or pericolonic/ perienteric inflammation. There is no mesenteric adenop athy, free intraperitoneal fluid or mesenteric/ omental inflammation. APPENDIX: Unable to identify the appendix. There is no pericecal inflammation. PELVIS, BLADDER, AND ABDOMINAL WALL:There is no abnormality of the uterus or adnexa that is apparent on CT. The urinary bladder is nondistended. There is a fat containing umbilical hernia. BONES: No fracture or osseous lesion. OTHER: No other finding. IMPRESSION: 1. 3 mm calculus within the proximal right ureter that results in mild hydroureteronephr osis and mild asymmetric stranding of the perinephric fat. 2. Hypodense lesion in the posterior aspect of the right hepatic lobe that measures 4.5 cm in transve rse diameter, 5.1 cm in craniocaudal diameter and 4.3 cm in AP diameter. Correlation with a nonemerg ent liver protocol CT or MRI is recommended. 3. Colonic diverticulosis without diverticulitis. COMMENT: Quality ID # [id number]: Final reports with documentation of one or more dose reduction techniques (e.g., Automated exposure control, adjustment of the mA and/or kV according to patient size, use of iterative reconstruction technique) TECHNICAL DOCUMENTATION: JOB ID: [id number] 2010 [employer]- All Rights Reserved Reading location - IP/workstation name: [email or web address]
[2019-12-06] MEDS ORDERED: OXYCODONE-ACETAMINOPHEN 5-325 MG TABLET PO ONE (10:05)
[2019-12-06 10:29] VITALS: BP 179/104
== END 2019-12-06 10:29 | disposition home or self-care (01) ==
LOC: ER 05:15
DX: N20.0 Calculus of kidney (principal); K57.30 Diverticulosis of large intestine without perforation or abscess without bleeding; K76.9 Liver disease, unspecified; R10.9 Unspecified abdominal pain; R11.0 Nausea; I10 Essential (primary) hypertension; Z88.0 Allergy status to penicillin; Z91.040 Latex allergy status; Z90.49 Acquired absence of other specified parts of digestive tract; Z90.710 Acquired absence of both cervix and uterus
CPT/HCPCS: 99284; 96374; 96375; 36415; 83690; 85025; 80053; 81001; 74176; J1885; J2405

== ENCOUNTER → 2020-06-01 | Outpatient (CLI) | payer BC ==
--- NOTE | 2020-06-01 15:26 | RADIOLOGY REPORT (SQ) ---
EXAM DESCRIPTION: CT SOFT TISSUE NECK WITHOUT IMAGES COMPLETED DATE/TIME: 06/01/2020 3:12 pm REASON FOR STUDY: SIALADENITIAS J32.9 CHRONIC SINUSITIS, UNSPECIFIED K11.20 SIALOADENITIS, UNSPECI FIED COMPARISON: None. TECHNIQUE: Noncontrast scanning from skull base through lung apices with review of bone, soft tissue and lung windows. Reconstructed coronal and sagittal MPR images reviewed. All images stored on PAC S. All CT scanners at this facility use dose modulation, iterative reconstruction, and/or weight based d osing when appropriate to reduce radiation dose to as low as reasonably achievable (ALARA). [facility]: Dose Right [facility]: CareDose [facility]: Dose Right [facility]: Teradose 4D [facility]: [employer] RADIATION DOSE: CT Rad equipment meets quality standard of care and radiation dose reduction techniq ues were employed. CTDIvol: 21.1 mGy. DLP: 656 mGy-cm. mGy. LIMITATIONS: None. FINDINGS: SKULL BASE: Intact. MAJOR SALIVARY GLANDS: No solid or cystic masses. No inflammatory changes. No calcifications. LYMPHADENOPATHY: No adenopathy. MUCOSAL MASSES OR ASYMMETRY: No mucosal masses or asymmetry. LARYNX/CORDS: No abnormal findings. LUNG APICES: Clear. BONES: Intact. THYROID: Normal size. No masses. PARANASAL SINUSES: Large retention cyst or polyp in the right maxillary sinus. OTHER: No other significant finding. IMPRESSION: Retention cyst polyp in the right maxillary sinus. No other significant findings. TECHNICAL DOCUMENTATION: JOB ID: [id number] Quality ID # [id number]: Final reports with documentation of one or more dose reduction techniques (e.g., Au tomated exposure control, adjustment of the mA and/or kV according to patient size, use of iterative reconstruction technique) 2010 [employer]- All Rights Reserved Reading location - IP/workstation name: [email or web address]
== END ==
LOC: RAD 13:16
PROVIDERS: ATTEND Otolaryngology
DX: K11.20 Sialoadenitis, unspecified (principal); J32.9 Chronic sinusitis, unspecified
CPT/HCPCS: 70486; 70490

== ENCOUNTER 2020-08-01 09:16 | Day surgery (SDC) | payer BC ==
[~2020-08-01 09:16] MED LIST changes: -ALBUTEROL SULFATE 0.083% NEB 2.5 MG/3 ML AMPUL NEB ONE; +CEFAZOLIN 2 GM/D5W RTU 2 GM/50 ML RTUPB IV PRN
[2020-08-01] MEDS ORDERED: DEXAMETHASONE SOD PHOSPHATE INJ 4 MG/1 ML VIAL ONE ×2 (09:24→14:25)
[2020-08-01] MEDS ORDERED: HYDROMORPHONE HCL INJ/PF 2 MG/ML AMPULE ONE (09:24)
[2020-08-01] MEDS ORDERED: MIDAZOLAM 2 MG/2 ML INJ ONE (09:24)
[2020-08-01] MEDS ORDERED: PROPOFOL INJ 200 MG/20 ML VIAL IV ONE (09:24)
[2020-08-01] MEDS ORDERED: FENTANYL CITRATE INJ/PF 100 MCG/2 ML AMPUL ONE (09:24)
[2020-08-01] MEDS ORDERED: NORMAL SALINE SUBCUT PRN ×2 (09:51→10:00)
[2020-08-01] MEDS ORDERED: EPINEPHRINE SUBCUT PRN ×2 (09:51→10:00)
[2020-08-01] MEDS ORDERED: OXYMETAZOLINE HCL 0.05% NASAL SPRAY 15 ML BOTTLE ONE ×2 (09:56→12:05)
[2020-08-01] MEDS ORDERED: MORPHINE SULFATE 10 MG/ML INJ IV PRN (10:24)
[2020-08-01] MEDS ORDERED: MEPERIDINE HCL/PF INJ 25 MG/1 ML DISP.SYRIN IV PRN (10:24)
[2020-08-01] MEDS ORDERED: ONDANSETRON HCL INJ/PF 4 MG/2 ML SDV IV PRN ×2 (10:24→13:10)
[2020-08-01] MEDS ORDERED: FENTANYL CITRATE INJ/PF 100 MCG/2 ML AMPUL IV PRN ×3 (10:24)
[2020-08-01] MEDS ORDERED: HYDROCODONE/ACETAMINOPHEN 5-325 MG TABLET PO PRN (13:10)
[2020-08-01] MEDS ORDERED: ONDANSETRON HCL INJ/PF 4 MG/2 ML SDV ONE ×2 (13:45→14:25)
--- NOTE | 2020-08-01 14:18 | Operative Report ---
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 Patient presents today for sialolithotomy, endoscopic sinus surgery, septoplasty, inferior turbinate reduction and repair nasal vestibular stenosis. Informed consent was obtained from the patient. Pre-operative diagnosis: 1. Deviated nasal septum 2. Inferior turbinate hypertrophy, bilateral 3. Nasal vestibular stenosis, bilateral 4. Polyp maxillary sinus, right 5. Leukoplakia larynx 6. Sialolithiasis Post operative diagnosis: same as above. Procedure: 1. Nasal septoplasty [CPT: 54024] 2. Inferior turbinate reduction, right side [CPT: 42584] 3 . Inferior turbinate reduction, left side [CPT: 48610] 4. Repair nasal vestibular stenosis, right side (CPT: 85496) 5. Repair nasal vestibular stenosis, left side (CPT: 69407) 6. Maxillary antrostomy, right [CPT: 62685] 7. Excision polpy maxillary sinus, right [CPT: 27816] 8. Micro direct laryngoscopy 9. Biopsy leukoplakia interarytenoid area of the larynx Surgeon: Epifanio James MD, FACS, [facility] Anesthia: BULL Description of the procedure: After receiving informed consent, the patient was brought to the operating room and placed supine on the operating table. After successful induction and intubation by anesthesia, cottonoids soaked with Afrin were placed into each nasal cavity for approximately five minutes. They were removed andthe septum along with the inferior turbinate were injected with 1:100,000 epinephrine. The cottonoids were replaced. The patient was then prepped and draped in a sterile fashion. The cottonoids where then removed. Attention was directed to the microlaryngoscopy portion of procedure. The patient was turned 90 degrees and a head drape placed. The head was placed into a sniffing position. A mouth guard was placed over the upper dentition. The Lety laryngoscope was inserted atraumatically into the laryngeal inlet and this was then suspended. Microscope was brought into the field. The area of leukoplakia was noted mainly involving the right portion of the interarytenoid area. Biopsy/cup forceps were used to take several biopsies from this area of leukoplakia. This was sent to pathology for analysis. An Afrin saturated cottonoid was then placed over the biopsy site for hemostasis. The cottonoid was removed after several minutes. The patient was taken out of suspension and the laryngoscope removed. The patient was then turned back towards anesthesia and the oral cavity was held open by a dental retractor. The floor mouth was palpated, however a salivary gland stone was not appreciated. The entire floor mouth was palpated a second time and again no evidence of a salivary gland stone. Attention was then directed towards the septoplasty portion of this procedure. A number 15 blade was used to make a vanessa transfixtion incision on the left side. Next using a Stahl and then A Lizzette elevator, a mucoperichondrial/mucoperiosteal flap was elevated back to the sphenoid rostrum. This was then elevated onto the nasal floor. A mucoperichondrial flap was elevated around the caudal edge of the septum and onto the right side. This exposed both sides of the cartilaginous septum. The osseocartilaginous junction was and a mucoperiosteal flap was elevated on the right side. Gambino scissors were used to make horizontal cuts in the perpendicular plate of the ethmoid bone, superiorly and inferiorly. Waqar-Stone forceps were used to remove this. A vomeroethmoid spur was identified and the mucosa was carefully dissected from it. A V-chisel was used to remove this spur. An inferior cartilage spur was removed using a D knife . Maxillary crest spur was removed using a V chisel. Willie-Mariscal's were used to remove a high septal deflection in the area of the internal nasal valve. The septum was viewed with the flaps in place and found to be relatively straight. The middle turbinates were visible on both sides. Attention was then directed towards the endoscopic sinus surgery portion of the procedure. The image guidance system was calibrated to the patient and found to be working correctly. The eyes were within the field of surgery for visualization during the procedure. A rigid endoscope was inserted into the right nasal cavity and the middle turbinate identified. The middle turbinate was medialized using a [place] elevator. A ball seeker was placed into the infundibulum and the uncinate process was displaced anteriorly. A sickle knife was used to make an incision into the uncinate process and an uncinectomy was performed using Blaimguel forceps and microdebrider. An olive-tipped sucker was placed into the natural os of the maxillary sinus and the tissues were displaced posteriorly. Blakesley forceps and microdebrider were used to widen the antrostomy in a posterior and inferior direction. The maxillary sinus polyp was identified and using 45 degree Blakesley forceps this was removed from the maxillary sinus. Backbiters were used to enlarge the antrostomy in an anterior direction. A 30 degree endoscope was then used to visualize the entirety of the maxillary sinus. No evidence of residual polyp. The polyp was removed in toto. The maxillary sinus mucosa appeared normal. An Afrin saturated cotton was then placed into the middle meatus. The vanessa transfixion incision was closed using 4-0 chromic and a 4-0 plain gut whip stitch was used to secure the septal flaps. Attention was then directed to the nasal valve area on the right, where the [employer] nasal airway remodeling system was used to repair the nasal vestibular stenosis. The handpiece was placed superiorly at the caudal margin of the upper lateral cartilage and the device was activated. This was repeated 2 more times marching inferiorly towards the piriform aperture. A similar procedure was done on the left. Attention was then directed to the inferior turbinates. Inferior turbinate reduction was performed using the [employer] turbinate system. Destruction of submucosal tissue was performed on the left inferior turbinate and then this tur binate was medialized and lateralized using a Sayer elevator. A similar procedure was performed on the right side. The previously placed cottonoid was removed from the right middle meatus and an absorbable packing was then placed into the right middle meatus, keeping the middle turbinate medialized. The absorbable packing was saturated with Afrin. Silicon splints coated with bacitracin were placed into each nasal cavity and secured with a 2-0 prolene. Afrin soaked cottonoids were placed into each nasal cavity and secured to each other in front of the nose. The patient was then given back to anesthesia who successfully extubated them. The patient tolerated the procedure well without any complications. Estimated blood loss: 15 mL Fluids: 1500 mL The patient was transferred to the post anesthesia care unit in stable condition with spontaneous respirations.
[2020-08-01] MEDS ORDERED: NEOSTIGMINE METHYLSULFATE 10 MG/10 ML VIAL ONE (14:25)
[2020-08-01] MEDS ORDERED: ROCURONIUM BROMIDE INJ 50 MG/5 ML VIAL IV ONE (14:25)
[2020-08-01] MEDS ORDERED: PHENYLEPHRINE HCL INJ/PF 10 MG/1 ML SDV ONE (14:25)
[2020-08-01] MEDS ORDERED: GLYCOPYRROLATE 1 MG/5 ML VIAL ONE (14:25)
[2020-08-01] MEDS ORDERED: HYDROCHLOROTHIAZIDE 12.5 MG TABLET PO ONE (15:00)
[2020-08-01] MEDS ORDERED: LOSARTAN POTASSIUM 50 MG TABLET PO ONE (15:00)
[2020-08-01] MEDS ORDERED: AMLODIPINE BESYLATE 5 MG TABLET PO ONE (15:00)
[2020-08-01 15:36] VITALS: BP 185/107
== END 2020-08-01 15:45 | disposition home or self-care (01) ==
LOC: OROUT 09:16
PROVIDERS: ATTEND Otolaryngology
DX: J38.7 Other diseases of larynx (principal); J34.3 Hypertrophy of nasal turbinates; J34.1 Cyst and mucocele of nose and nasal sinus; J34.2 Deviated nasal septum; J34.89 Other specified disorders of nose and nasal sinuses; J33.8 Other polyp of sinus; K11.5 Sialolithiasis; R23.4 Changes in skin texture; J30.9 Allergic rhinitis, unspecified; E04.2 Nontoxic multinodular goiter; I10 Essential (primary) hypertension; K21.9 Gastro-esophageal reflux disease without esophagitis; Z01.812 Encounter for preprocedural laboratory examination; Z20.828 Contact with and (suspected) exposure to other viral communicable diseases
CPT/HCPCS: 88304 ×2; 30520; 30140; 30465; 31267; 31536; U0003; J2250; J3490 ×3; J1100; J0171; J2710; J1170; J2370; J2405; J2704; C9803; 87635; C1758; C1769; J3010